=== PATIENT | female | born 1935 | race Caucasian/White ===

== ENCOUNTER → 2020-01-11 08:33 | Outpatient (CLI) | payer OTHER, SELFPAY ==
[2020-01-12 18:30] LABS: COVID19 Sendout Not Detected (Not Detected)
== END ==
PROVIDERS: Visit Provider Physician Assistant
DX: Z11.59 Encounter for screening for other viral diseases (principal)
CPT/HCPCS: 87635

== ENCOUNTER 2023-09-13 13:45 | Observation (INO) | payer OTHER, SELFPAY ==
[2023-09-13] VITALS (25 sets, daily range): BP systolic 129–177; BP diastolic 60–99; PULSE 77–89; RESP 12–20; TEMP 36.1–36.8; O2SAT 84–99; BMI 23.7
--- NOTE | 2023-09-13 | DI.RAD.S_ITS ---
PROCEDURE: XR HIP LT 1V INDICATIONS: HIP DISLOCATION TECHNIQUE: 2 views of the hip were acquired. COMPARISON: [facility], CR, XR HIP W PEL IF DONE LT 2V, 09/13/2023, 14:10. FINDINGS: Bones: Left hip prosthesis with persistent mild positioning of the prosthetic femoral head from the prosthetic acetabulum. It appears to be superiorly and laterally displaced, unchanged Soft tissues: No suspicious soft tissue calcifications or masses. 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 on 09/13/2023 at 17:48 Approved by: Poli Reid M.D. on 09/13/2023 at 17:50
--- NOTE | 2023-09-13 14:00 | DI.RAD.S_ITS ---
PROCEDURE: XR HIP W PEL IF DONE LT 2V INDICATIONS: possible dislocation, history of TECHNIQUE: AP pelvis and lateral view of the hip acquired. COMPARISON: None. FINDINGS: Bones: Patient is status post bilateral hip arthroplasty, with the left femoral component distracted laterally and superiorly from the hip socket. There is elevated acetabular version of the left more than right acetabular component. The visualized bony structures appear intact. Soft tissues: Overlying postoperative changes are noted. No suspicious soft tissue densities. IMPRESSION: Dislocation of left hip prosthesis. Dictated by: Poli Reid M.D. on 09/13/2023 at 13:28 Approved by: Poli Reid M.D. on 09/13/2023 at 13:32
--- NOTE | 2023-09-13 14:55 | ED.LOWEXIN ---
HPI - Extremity Injury (Lower) General Chief Complaint: Extremity Injury, Lower Stated Complaint: L Hip Pain Time Seen by Provider: 09/13/23 14:55 Source: patient and EMS Mode of arrival: EMS Related Data Home Medications Medication Instructions Recorded Confirmed acetaminophen 500 mg tablet 1,000 mg PO BID PRN 09/09/23 09/09/23 (Tylenol Extra Strength) aspirin 81 mg tablet,delayed 81 mg PO DAILY 09/09/23 09/09/23 release (Adult Low Dose Aspirin) latanoprost 0.005 % eye drops 1 drp EYE-BOTH QPM 09/09/23 09/09/23 timolol maleate 0.5 % eye drops 1 drp EYE-BOTH QAM 09/09/23 09/09/23 Previous Rx's Medication Instructions Recorded trospium 20 mg tablet 20 mg PO BID #180 tabs 09/09/23 Allergies Allergy/AdvReac Type Severity Reaction Status Date / Time No Known Drug Allergies Allergy Verified 09/13/23 13:54 Patient History Medical History (Updated 09/09/23 @ 14:03 by Mikhail Jung DO) Gait instability Overactive bladder Social History Smoking Status: Never smoker Smoking Status: Never smoker alcohol intake frequency: holidays/special occasions only Substance Use Type: does not use Exam Initial Vital Signs Initial Vital Signs: Vital Signs Pulse Rate 86 09/13/23 13:54 Respiratory Rate 18 09/13/23 13:54 Blood Pressure 171/85 H 09/13/23 13:54 Pulse Oximetry 96 09/13/23 13:54 Oxygen Delivery Method Room Air 09/13/23 13:54 Course Orders Ordered: ED Orders 09/13/23 14:00 XR hip w pel if done LT 2V Stat Vital Signs Vital signs: Vital Signs - 8 hr 09/13/23 13:54 Pulse Rate 86 Respiratory Rate 18 Blood Pressure 171/85 H Pulse Oximetry 96 Oxygen Delivery Method Room Air Discharge Plan Departure Prescriptions: No Action timolol maleate 0.5 % drops 1 drp EYE-BOTH QAM latanoprost 0.005 % drops 1 drp EYE-BOTH QPM aspirin [Adult Low Dose Aspirin] 81 mg tablet,delayed release (DR/EC) 81 mg PO DAILY acetaminophen [Tylenol Extra Strength] 500 mg tablet 1,000 mg PO BID PRN trospium 20 mg tablet 20 mg PO BID Qty: 180 3RF Rx Instructions: administer on an empty stomach Referrals: Mikhail Jung DO [Primary Care Provider] -
--- NOTE | 2023-09-13 15:20 | ED_ITS ---
HPI - Extremity Injury (Lower) General Chief Complaint: Extremity Injury, Lower Stated Complaint: L Hip Pain Time Seen by Provider: 09/13/23 14:55 Source: patient and EMS Mode of arrival: EMS History of Present Illness HPI Narrative: 8-year-old female with history of prior hip dislocations and bilateral hip replacement. Patient recently moved to the area from [place]. She states she has had prior for prior hip dislocations. Patient states today she was hanging a picture she thinks she may have rotated her leg in wired but states that she had not sat down or bent at the hip or knee significantly when this happened. She states she has had a similar situation she was standing when she dislocated in the past. She states surgeries and prior dislocations were reduced in [place]. Patient states no daily anticoagulants but does have aspirin on her daily med list. She states she has had prior back surgery as well as bilateral hip surgery. She denies any cardiac interventions. No known drug allergies. No tobacco, occasional alcohol, no recreational drugs. Dr. Jung is her primary care physician. Related Data Home Medications Medication Instructions Recorded Confirmed acetaminophen 500 mg tablet 1,000 mg PO BID PRN Pain (Scale 09/09/23 09/13/23 (Tylenol Extra Strength) Score 4-6) aspirin 81 mg tablet,delayed 81 mg PO DAILY 09/09/23 09/13/23 release (Adult Low Dose Aspirin) latanoprost 0.005 % eye drops 1 drp EYE-BOTH QPM 09/09/23 09/13/23 timolol maleate 0.5 % eye drops 1 drp EYE-BOTH QAM 09/09/23 09/13/23 Previous Rx's Medication Instructions Recorded trospium 20 mg tablet 20 mg PO BID #180 tabs 09/09/23 Allergies Allergy/AdvReac Type Severity Reaction Status Date / Time No Known Drug Allergies Allergy Verified 09/13/23 13:54 Review of Systems Review of Systems ROS Unobtainable: All systems reviewed & are unremarkable except as noted in HPI and below Patient History Medical History Gait instability Overactive bladder Social History household members: none Smoking Status: Never smoker alcohol intake: current Smoking Status: Never smoker alcohol intake frequency: holidays/special occasions only Substance Use Type: does not use Exam Narrative Exam Narrative: GENERAL: Alert and oriented x three, elderly female in mild distress. HEENT: Head normocephalic, atraumatic, EOMI, pupils reactive, face symmetric, moist mucous membranes NECK: Supple, full range of motion CARDIOVASCULAR: Regular rate and rhythm without murmurs, rubs or gallops. RESPIRATORY: Breath sounds equal bilaterally, no wheezes rales or rhonchi. ABDOMEN: Soft, nontender. Normoactive bowel sounds all 4 quadrants. No guarding or rebound, rigidity, no mass : No CVA tenderness EXTREMITIES: Normal range of motion infection left lower extremity., no clubbing or edema. Neurovascularly intact. Patient has 2+ dorsalis pedis. She is sensation throughout both legs. Patient does have a small scab on her great toe on the left foot. NEUROLOGICAL: Cranial nerves II through XII grossly intact. Moving all extremities SKIN: Warm, dry, no petechiae, no rashes or lesions otherwise noted. Initial Vital Signs Initial Vital Signs: Vital Signs Pulse Rate 86 09/13/23 13:54 Respiratory Rate 18 09/13/23 13:54 Blood Pressure 171/85 H 09/13/23 13:54 Pulse Oximetry 96 09/13/23 13:54 Oxygen Delivery Method Room Air 09/13/23 13:54 Procedures Orthopedic Joint Reduction Joint #1: Time Out Performed: Yes Side: left Joint Reduction Location: hip Analgesia: procedural sedation Technique used: traction/counter-traction and direct manipulation Post-reduction neuro exam: intact and no change Post-reduction vascular: intact and no change Post Reduction X-Ray Obtained: Yes Post Reduction X-Ray Results: not reduced Procedural Sedation Consent signed: Yes Time out performed: Yes Indication: fracture/dislocation reduction ASA Class: II Mallampati Airway Classification: Class II Time of Last PO Intake: 12:00 Preparation: playground monitor applied, pulse oximeter, supplemental O2 applied, suction/airway equipment at bedside and IV secured IV Propofol dose (mg): 150 (given in 50mg aliquots.) ED Sedation Level: Moderate (Concious) Patient Tolerated Procedure: Well Complications: hypoxia Interventions: Airway repositioned, Assist by BVM and Oxygen applied Course Orders Ordered: Discontinued Medications Acetaminophen (Acetaminophen 325 Mg Tablet) 650 mg PO Q6H PRN PRN Reason: Fever/Mild Pain (1-3) Acetaminophen (Acetaminophen 325 Mg Tablet) 650 mg PO Q6H [facility] Last Admin: 09/15/23 08:11 Dose: 650 mg Documented By: Admin: 09/15/23 02:30 Dose: 650 mg Documented By: Admin: 09/14/23 20:22 Dose: 650 mg Documented By: Admin: 09/14/23 14:36 Dose: 650 mg Documented By: Admin: 09/14/23 09:16 Dose: 650 mg Documented By: Admin: 09/14/23 03:18 Dose: 650 mg Documented By: Admin: 09/13/23 21:03 Dose: 650 mg Documented By: AT Aspirin (Aspirin Ec 81 Mg Tablet) 81 mg PO BID [facility] Last Admin: 09/15/23 08:10 Dose: 81 mg Documented By: Admin: 09/14/23 20:22 Dose: 81 mg Documented By: Admin: 09/14/23 09:17 Dose: 81 mg Documented By: Admin: 09/13/23 21:03 Dose: 81 mg Documented By: AT Bisacodyl (Bisacodyl 10 Mg Supp) 10 mg KS PRN PRN PRN Reason: Constipation Diphenhydramine HCl (Diphenhydramine 25 Mg Tablet) 50 mg PO Q6H PRN PRN Reason: mod to severe erythema, urticaria, or pruritis Diphenhydramine HCl (Diphenhydramine 50 Mg/Ml Vial) 50 mg IV Q6HR PRN PRN Reason: mild to moderate erythema, urticaria, or pruritis Docusate Sodium (Docusate 100 Mg Capsule) 100 mg PO BID [facility] Last Admin: 09/15/23 08:10 Dose: 100 mg Documented By: Admin: 09/14/23 20:22 Dose: 100 mg Documented By: Admin: 09/14/23 09:17 Dose: 100 mg Documented By: Admin: 09/13/23 21:04 Dose: Not Given Documented By: AT Docusate Sodium (Docusate 100 Mg Capsule) 100 mg PO BID DOMONIQUE Lactated Ringer's (Lactated Ringers) 1,000 mls @ 100 mls/hr IV CONT [facility] Last Admin: 09/13/23 21:25 Dose: Not Given Documented By: AT Lactated Ringer's (Lactated Ringers) 1,000 mls @ 100 mls/hr IV CONT DOMONIQUE Last Infusion: 09/15/23 07:43 Dose: Infused Documented By: Admin: 09/13/23 20:59 Dose: 100 mls/hr Documented By: AT Latanoprost (Latanoprost 0.005% Ophth 2.5 Ml) 1 drops EYE-BOTH QPM [facility] Last Admin: 09/14/23 18:04 Dose: Not Given Documented By: MM Naloxone HCl (Naloxone 0.4 Mg/Ml Vial) 0.2 mg IV Q2MIN PRN PRN Reason: Opiate Reversal Naloxone HCl (Naloxone 0.4 Mg/Ml Vial) 0.2 mg IV Q2MIN PRN PRN Reason: Opiate Reversal Naloxone HCl (Naloxone 0.4 Mg/Ml Vial) 0.2 mg IV Q2MIN PRN PRN Reason: Opiate Reversal Ondansetron HCl (Ondansetron 4 Mg Odt) 4 mg PO Q4HR PRN PRN Reason: Nausea And Vomiting Ondansetron HCl (Ondansetron 4 Mg/2 Ml Inj) 4 mg IV Q4HR PRN PRN Reason: Nausea And Vomiting Ondansetron HCl (Ondansetron 4 Mg/2 Ml Inj) 4 mg IV Q4HR PRN PRN Reason: Nausea And Vomiting Ondansetron HCl (Ondansetron 4 Mg Odt) 4 mg PO Q4HR PRN PRN Reason: Nausea Oxybutynin Chloride (Oxybutynin 5 Mg Er Tab) 10 mg PO DAILY [facility] Last Admin: 09/15/23 08:11 Dose: 10 mg Documented By: Admin: 09/14/23 09:17 Dose: 10 mg Documented By: ESEQUIEL Oxycodone HCl (Oxycodone Ir 5 Mg Tablet) 5 mg PO Q3H PRN PRN Reason: Pain, Severe (7-10) Polyethylene Glycol (Polyethylene Glycol 3350 17 Gm Powd.Pack) 17 gm PO DAILY [facility] Last Admin: 09/15/23 08:11 Dose: 17 gm Documented By: Admin: 09/14/23 09:16 Dose: 17 gm Documented By: ESEQUIEL Polyethylene Glycol (Polyethylene Glycol 3350 17 Gm Powd.Pack) 17 gm PO DAILY PRN PRN Reason: Constipation Propofol (Propofol 200 Mg/20 Ml Vial) 70 mg 1 mg/kg (70 mg) IV NOW ONE Stop: 09/13/23 14:57 Last Admin: 09/13/23 16:31 Dose: Not Given Documented By: SPF Propofol (Propofol 200 Mg/20 Ml Vial) 150 mg IV NOW ONE Stop: 09/13/23 16:32 Last Admin: 09/13/23 16:47 Dose: 150 mg Documented By: SPF Sennosides (Sennosides 8.6 Mg Tablet) 17.2 mg PO BEDTIME [facility] Last Admin: 09/14/23 20:22 Dose: 17.2 mg Documented By: Admin: 09/13/23 21:04 Dose: Not Given Documented By: AT Sodium Biphosphate/Sodium Phosphate (Fleets Enema) 1 each KS DAILY PRN PRN Reason: Constipation Timolol Maleate (Timolol 0.5% [facility]) 1 drops EYE-BOTH DAILY [facility] Last Admin: 09/15/23 08:12 Dose: 1 drop Documented By: Admin: 09/14/23 09:44 Dose: 1 drop Documented By: ESEQUIEL Tramadol HCl (Tramadol 50 Mg Tablet) 50 mg PO QID PRN PRN Reason: Pain, Moderate (4-6) Vital Signs Vital signs: Vital Signs - 8 hr 09/13/23 13:54 09/13/23 15:49 09/13/23 15:58 Pulse Rate 86 85 Respiratory Rate 18 Blood Pressure 171/85 H 171/83 H Pulse Oximetry 96 96 Oxygen Delivery Method Room Air Oxygen Flow Rate 09/13/23 15:58 09/13/23 15:59 09/13/23 16:00 Pulse Rate 83 85 Respiratory Rate 14 Blood Pressure 169/84 H Pulse Oximetry 97 97 Oxygen Delivery Method Room Air Oxygen Flow Rate 09/13/23 16:00 09/13/23 16:10 09/13/23 16:10 Pulse Rate 85 86 Respiratory Rate 16 16 Blood Pressure 164/78 H Pulse Oximetry 96 98 Oxygen Delivery Method Nasal Cannula Oxygen Flow Rate 3 09/13/23 16:15 09/13/23 16:15 09/13/23 16:20 Pulse Rate 82 82 Respiratory Rate Blood Pressure 146/99 H Pulse Oximetry 98 91 Oxygen Delivery Method Nasal Cannula Oxygen Flow Rate 6 09/13/23 16:20 09/13/23 16:26 09/13/23 16:26 Pulse Rate 83 Respiratory Rate 17 Blood Pressure 160/94 H 144/67 H Pulse Oximetry 84 L 97 Oxygen Delivery Method Ambu Bag Nasal Cannula Oxygen Flow Rate 15 3 09/13/23 16:30 09/13/23 16:30 09/13/23 16:35 Pulse Rate 83 Respiratory Rate 16 Blood Pressure 141/70 H 152/77 H Pulse Oximetry 95 Oxygen Delivery Method Room Air Oxygen Flow Rate 09/13/23 16:35 09/13/23 16:40 09/13/23 16:40 Pulse Rate 83 82 Respiratory Rate 12 14 Blood Pressure 165/85 H Pulse Oximetry 95 94 Oxygen Delivery Method Room Air Oxygen Flow Rate 09/13/23 16:48 09/13/23 16:48 Pulse Rate 84 Respiratory Rate 20 Blood Pressure 166/82 H Pulse Oximetry 94 Oxygen Delivery Method Room Air Oxygen Flow Rate MDM - Extremity Injury (Lower) Lab Data 09/14/23 04:59 Imaging Data Extremity x-ray #1: Radiologist's Impression: Close Hip X-Ray (Signed) Poli Reid - 09/13/23 Launch?Image [address] [address] XRay Report Signed Patient: Genevieve Gandara MR#: [id number] : 1935 Acct:[id number] Age/Sex: 88 / F Date of Service: 09/13/23 Loc: ED Accession Number: [id number] Procedure: XR hip w pel if done LT 2V Ordering Provider: Tamiko Nash D.O. PROCEDURE: XR HIP W PEL IF DONE LT 2V INDICATIONS: possible dislocation, history of TECHNIQUE: AP pelvis and lateral view of the hip acquired. COMPARISON: None. FINDINGS: Bones: Patient is status post bilateral hip arthroplasty, with the left femoral component distracted laterally and superiorly from the hip socket. There is elevated acetabular version of the left more than right acetabular component. The visualized bony structures appear intact. Soft tissues: Overlying postoperative changes are noted. No suspicious soft tissue densities. IMPRESSION: Dislocation of left hip prosthesis. Dictated by: Poli Reid M.D. on 09/13/2023 at 13:28 Approved by: Poli Reid M.D. on 09/13/2023 at 13:32 pelvis #2: Radiologist's Impression: [address] [address] XRay Report Signed Patient: Genevieve Gandara MR#: [id number] : 1935 Acct:[id number] Age/Sex: 88 / F Date of Service: 09/13/23 Loc: ED Accession Number: [id number] Procedure: XR pelvis 1-2V Ordering Provider: Kate Lang D.O. PROCEDURE: XR PELVIS 1-2V INDICATIONS: left hip dislocation TECHNIQUE: 1 view of the lower pelvis acquired. COMPARISON: None. FINDINGS: Bones: Patient is status post bilateral hip arthroplasty, with hardware the left femoral component lateral and superior to the acetabular component. The contralateral hip joint appears congruent. The visualized bony structures appear intact. Soft tissues: No suspicious soft tissue densities. IMPRESSION: Dislocated left hip prosthesis Dictated by: Poli Reid M.D. on 09/13/2023 at 15:41 Approved by: Poli Reid M.D. on 09/13/2023 at 15:42 MDM Narrative Medical decision making narrative: 88-year-old female with bilateral prosthetic hips with prior hip dislocations on the left. Patient describes having 4 prior episodes. Consent written and verbal was obtained for procedural sedation attempted reduction. This was unsuccessful. Repeat images show no fracture or other change. Patient case was discussed with Dr. Nicolas, orthopedic surgery who will see the patient with plan for OR tonight. Patient to continue to be NPO. Patient tolerating pain well. Continues to be neurovascularly intact. NPO for now. Discharge Plan Departure Clinical Impression: Closed dislocation of left hip, Unsteady gait Admit Date/Time: 09/13/23 17:55 Admit Provider: Johnson Nicolas Diet/Activity/Treatments Diet: Diet as Tolerated Activity: Weight-bearing as tolerated with the knee immobilizer on and locked in extension. Cold/Heat Therapy: Ice to the hip for additional pain control as needed
--- NOTE | 2023-09-13 16:18 | DI.RAD.S_ITS ---
PROCEDURE: XR PELVIS 1-2V INDICATIONS: left hip dislocation TECHNIQUE: 1 view of the lower pelvis acquired. COMPARISON: None. FINDINGS: Bones: Patient is status post bilateral hip arthroplasty, with hardware the left femoral component lateral and superior to the acetabular component. The contralateral hip joint appears congruent. The visualized bony structures appear intact. Soft tissues: No suspicious soft tissue densities. IMPRESSION: Dislocated left hip prosthesis Dictated by: Poli Reid M.D. on 09/13/2023 at 15:41 Approved by: Poli Reid M.D. on 09/13/2023 at 15:42
--- NOTE | 2023-09-13 16:29 | RT ---
Was called down to ER for a procedural sedation for a hip reduction. Pt required some blow by from [facility] for appox 2 min. Pt is on a 3L NC until fully awake.
[2023-09-13] MEDS: propofoL 200 MG/20 ML VIAL 150 MG IV (16:47)
--- NOTE | 2023-09-13 16:51 | PC.NURSE ---
Pt requested to call her daughter in law Rosemary to update her. I called Rosemary and updated her, she states she will come back in to sit with patient.
--- NOTE | 2023-09-13 17:30 | SUR.OPER ---
Supine on padded OR bed, head on pillow, arms secured on padded arm boards at <90 degrees abduction, legs uncrossed, safety belt at thigh, tape over blanket over lower legs.
--- NOTE | 2023-09-13 17:39 | P.CONS_ITS ---
History of Present Illness Consult details Date Patient Seen: 09/13/23 Time Patient Seen: 17:39 Chief complaint: L hip pain Reason for consult: left hip dislocation Requesting provider: Kate Lang Narrative: 88 yo F with history of JULIANNE in 2006 here for acute onset of left hip pain and inability to walk. She had previous dislocation 2 1/2 years ago and took multiple attempts to relocate. She was given an hip abduction brace from before, which she still has at home. She was hanging an object at home and felt a pop along with onset of pain to her left hip. She presented to ER. After workup, 2 attempts of relocations was performed by ER physicians and they were unable to relocate the left hip under sedation. Orthopedic service was consulted. Meds Home Medications and Allergies Home Medications Medication Instructions Recorded Confirmed Type acetaminophen 500 mg tablet 1,000 mg PO BID PRN 09/09/23 09/09/23 History (Tylenol Extra Strength) aspirin 81 mg tablet,delayed 81 mg PO DAILY 09/09/23 09/13/23 History release (Adult Low Dose Aspirin) latanoprost 0.005 % eye drops 1 drp EYE-BOTH QPM 09/09/23 09/09/23 History timolol maleate 0.5 % eye drops 1 drp EYE-BOTH QAM 09/09/23 09/09/23 History trospium 20 mg tablet 20 mg PO BID #180 tabs 09/09/23 09/09/23 Rx Allergies Allergy/AdvReac Type Severity Reaction Status Date / Time No Known Drug Allergies Allergy Verified 09/13/23 13:54 Review of Systems Review of Systems ROS: Yes All systems reviewed with the patient and are negative except as otherwise documented Exam Vital Signs (past 8 hours): - 09/13/23 13:54 09/13/23 15:49 09/13/23 15:58 Pulse Rate 86 85 Respiratory Rate 18 Blood Pressure 171/85 H 171/83 H Pulse Oximetry 96 96 Oxygen Delivery Method Room Air Oxygen Flow Rate 09/13/23 15:58 09/13/23 15:59 09/13/23 16:00 Pulse Rate 83 85 Respiratory Rate 14 Blood Pressure 169/84 H Pulse Oximetry 97 97 Oxygen Delivery Method Room Air Oxygen Flow Rate 09/13/23 16:00 09/13/23 16:10 09/13/23 16:10 Pulse Rate 85 86 Respiratory Rate 16 16 Blood Pressure 164/78 H Pulse Oximetry 96 98 Oxygen Delivery Method Nasal Cannula Oxygen Flow Rate 3 09/13/23 16:15 09/13/23 16:15 09/13/23 16:20 Pulse Rate 82 82 Respiratory Rate Blood Pressure 146/99 H Pulse Oximetry 98 91 Oxygen Delivery Method Nasal Cannula Oxygen Flow Rate 6 09/13/23 16:20 09/13/23 16:26 09/13/23 16:26 Pulse Rate 83 Respiratory Rate 17 Blood Pressure 160/94 H 144/67 H Pulse Oximetry 84 L 97 Oxygen Delivery Method Ambu Bag Nasal Cannula Oxygen Flow Rate 15 3 09/13/23 16:30 09/13/23 16:30 09/13/23 16:35 Pulse Rate 83 Respiratory Rate 16 Blood Pressure 141/70 H 152/77 H Pulse Oximetry 95 Oxygen Delivery Method Room Air Oxygen Flow Rate 09/13/23 16:35 09/13/23 16:40 09/13/23 16:40 Pulse Rate 83 82 Respiratory Rate 12 14 Blood Pressure 165/85 H Pulse Oximetry 95 94 Oxygen Delivery Method Room Air Oxygen Flow Rate 09/13/23 16:48 09/13/23 16:48 09/13/23 17:00 Pulse Rate 84 Respiratory Rate 20 Blood Pressure 166/82 H 158/77 H Pulse Oximetry 94 Oxygen Delivery Method Room Air Oxygen Flow Rate 09/13/23 17:00 Pulse Rate 84 Respiratory Rate 18 Blood Pressure Pulse Oximetry 97 Oxygen Delivery Method Oxygen Flow Rate Oxygen Delivery Method Room Air Oxygen Flow Rate 3 Extrem Other: left leg internally rotated and shortened. left LE neurovascularly intact. Scar from hip replacement well healed. no erythema, no lesions. Objective Imaging x-ray hip: My impression: x-ray of AP pelvis and left hip: history of bilateral JULIANNE, left hip has cerclage wires in place. Left hip has posterior dislocation. no obvious fracture on x-ray. [facility] Medical History Gait instability Overactive bladder Tobacco & Substance Use Smoking Status: Never smoker Assessment & Plan Assessment & Plan narrative: Patient has recurrent left hip dislocation, last time 2 years ago. After discussing with patient risks and benefits of treatment options, informed consent was obtained to perform close reduction of her left hip under anesthesia. Patient was active and highly functional until her injury to cause the dislocation today. Patient reported difficult relocation 2 years ago and ER physicians could not relocate the hip under sedation under multiple attempts. Patient will be taken to the OR emergently for close reduction under anesthesia.
--- NOTE | 2023-09-13 17:49 | PM.OP.1 ---
Operative Date/Time/Diagnoses Date of procedure: 09/13/23 Time of procedure: 18:00 Pre-op diagnosis: 1. Left hip dislocation with history of total hip replacement surgery Post-op diagnosis: same Procedure & Clinicians Procedure: Left hip joint close reduction under anesthesia Same procedure as scheduled: Yes Indications: Ms. Gandara is a 88 yo F with history of JULIANNE to LLE in 2006. She had previous dislocation 2 years ago. Today she re-dislocated while performing chores at home. ER physicians weren't able to reduce her hip after multiple attempts. I am scheduling her for left hip close reduction under general anesthesia emergently. Surgeon: Johnson Nicolas Click Yes if Unassisted: Yes Anesthesia Type: General Operative Notes Estimated Blood Loss (mL): 0 Blood products transfused: none Procedure in detail: Patient was identified in the preoperative area. Informed consent was obtained and placed in the chart. The affected leg was marked. Patient was taken to the operative room. General anesthesia was given to the patient and time-out was performed. Patient's affected hip was flexed slightly and longitudinal traction was pulled along the length of the femur with slight rotation. Assistance was given by nursing staff to apply pressure on the pelvis through the iliac crest to stabilize the pelvis during the reduction attempt. While in traction the hip was rotated slightly and being pulled longitudinally. There was no clucking sensation after multiple attempts. X-ray was taken and left hip dislocation was persisting after multiple attempts and x-rays. At this point I felt there is mechanical resistance to patient's hip being reduced and no additional attempts were made in order to prevent possible traumatic injury to soft tissue and/or bone/implants. Patient was woken up from anesthesia at this time. Patient was then transferred recovery room stable condition. Complications: none Post-operative Condition: stable Disposition: PACU Plan for aftercare: admit to inpatient hospital. After discussing with Dr. Frod, our hip specialist, he will attempt close reduction again possibly with assist of [place] table traction today.
--- NOTE | 2023-09-13 19:44 | PM.HP.1 ---
History of Present Illness History of Present Illness Date Patient Seen: 09/13/23 Time Patient Seen: 19:45 Chief complaint: L hip pain Narrative: 88-year-old female seen in the preoperative holding area today. 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 This hip was placed in 2006 [address] [place] [address] a [address] Glaser through a posterior approach. She has had 5 prior dislocations. She reports that her past medical history is significant only for bladder issues. She complains of pain in the left hip. It does not radiate. It is worsened by movement. [facility] Medical History Gait instability Overactive bladder Social History household members: family Smoking Status: Never smoker alcohol intake: current Meds Home Medications and Allergies Home Medications Medication Instructions Recorded Confirmed Type acetaminophen 500 mg tablet 1,000 mg PO BID PRN Pain (Scale 09/09/23 09/13/23 History (Tylenol Extra Strength) Score 4-6) aspirin 81 mg tablet,delayed 81 mg PO DAILY 09/09/23 09/13/23 History release (Adult Low Dose Aspirin) latanoprost 0.005 % eye drops 1 drp EYE-BOTH QPM 09/09/23 09/13/23 History timolol maleate 0.5 % eye drops 1 drp EYE-BOTH QAM 09/09/23 09/13/23 History trospium 20 mg tablet 20 mg PO BID #180 tabs 09/09/23 09/13/23 Rx Allergies Allergy/AdvReac Type Severity Reaction Status Date / Time No Known Drug Allergies Allergy Verified 09/13/23 13:54 Review of Systems Review of Systems ROS: Yes All systems reviewed with the patient and are negative except as otherwise documented Exam Vital Signs (past 8 hours): - 09/13/23 13:54 09/13/23 15:49 09/13/23 15:58 Temperature Pulse Rate 86 85 Respiratory Rate 18 Blood Pressure 171/85 H 171/83 H Pulse Oximetry 96 96 Oxygen Delivery Method Room Air Oxygen Flow Rate 09/13/23 15:58 09/13/23 15:59 09/13/23 16:00 Temperature Pulse Rate 83 85 Respiratory Rate 14 Blood Pressure 169/84 H Pulse Oximetry 97 97 Oxygen Delivery Method Room Air Oxygen Flow Rate 09/13/23 16:00 09/13/23 16:10 09/13/23 16:10 Temperature Pulse Rate 85 86 Respiratory Rate 16 16 Blood Pressure 164/78 H Pulse Oximetry 96 98 Oxygen Delivery Method Nasal Cannula Oxygen Flow Rate 3 09/13/23 16:15 09/13/23 16:15 09/13/23 16:20 Temperature Pulse Rate 82 82 Respiratory Rate Blood Pressure 146/99 H Pulse Oximetry 98 91 Oxygen Delivery Method Nasal Cannula Oxygen Flow Rate 6 09/13/23 16:20 09/13/23 16:26 09/13/23 16:26 Temperature Pulse Rate 83 Respiratory Rate 17 Blood Pressure 160/94 H 144/67 H Pulse Oximetry 84 L 97 Oxygen Delivery Method Ambu Bag Nasal Cannula Oxygen Flow Rate 15 3 09/13/23 16:30 09/13/23 16:30 09/13/23 16:35 Temperature Pulse Rate 83 Respiratory Rate 16 Blood Pressure 141/70 H 152/77 H Pulse Oximetry 95 Oxygen Delivery Method Room Air Oxygen Flow Rate 09/13/23 16:35 09/13/23 16:40 09/13/23 16:40 Temperature Pulse Rate 83 82 Respiratory Rate 12 14 Blood Pressure 165/85 H Pulse Oximetry 95 94 Oxygen Delivery Method Room Air Oxygen Flow Rate 09/13/23 16:48 09/13/23 16:48 09/13/23 17:00 Temperature Pulse Rate 84 Respiratory Rate 20 Blood Pressure 166/82 H 158/77 H Pulse Oximetry 94 Oxygen Delivery Method Room Air Oxygen Flow Rate 09/13/23 17:00 09/13/23 17:30 09/13/23 18:25 Temperature 98.2 F 97.2 F L Pulse Rate 84 88 77 Respiratory Rate 18 16 16 Blood Pressure 162/90 H 145/86 H Pulse Oximetry 97 99 98 Oxygen Delivery Method Room Air Room Air Oxygen Flow Rate 09/13/23 18:30 09/13/23 18:35 09/13/23 18:45 Temperature 97.2 F L 97.2 F L Pulse Rate 83 83 82 Respiratory Rate 16 16 16 Blood Pressure 159/79 H 148/69 H 145/69 H Pulse Oximetry 98 98 98 Oxygen Delivery Method Room Air Room Air Room Air Oxygen Flow Rate Oxygen Delivery Method Room Air Oxygen Flow Rate 3 Narrative Exam Narrative: Sensation intact to light touch in entire foot. Flexes and extends hallux and ankle. Well-healed posterior incision. No severe abrasions on the hip at the site of prior reduction attempts Const General: cooperative Orientation: alert and awake [facility] Head: normal to inspection Ears: hearing grossly normal bilaterally Eyes General: appearance normal, both eyes and all related structures Neck Neck: normal visual inspection Resp Effort & Inspection: normal respiratory effort and able to speak in complete sentences Cardio Pulses: other (peripheral pulses present) Skin Lesions: no lesions Rashes: no rashes Neuro General: patient alert, patient awake and moves all extremities Psych Appearance: grossly normal Assessment & Plan Assessment and plan (1) Closed dislocation of left hip: Status: Acute Plan I plan to proceed with the traction table aided closed reduction of the left hip this evening. Prior attempts have been made earlier this evening and I am hopeful that with the aid of the fracture table we will be able to get the hip reduced. As she has had 5 dislocations she is going to be appropriate for revision of her liner likely to a constrained component however it would be ideal from a preoperative planning perspective to this as a outpatient procedure if we are able to get the hip back in the evening. I have no plans to open the hip this evening if I am unsuccessful in my attempts to achieve a closed reduction. I would have her utilize a an abduction pillow following reduction. Quality VTE Deep Vein Thrombosis/Pulmonary Embolism Present on Admission: No
--- NOTE | 2023-09-13 20:14 | SUR.OPER ---
Supine on padded [place] table with bilateral legs secured in padded positioning boots and suspended in positioning spars, operative leg in traction per surgeon. Head on one pillow. Arm on non-operative side secured on padded armboard <90 degrees abduction. Arm on operative side padded and resting across chest then secured with tape over sheet. Padded perineal post in place per surgeon.
--- NOTE | 2023-09-13 20:22 | DI.RAD.S_ITS ---
PROCEDURE: XR HIP W PEL IF DONE LT 2V INDICATIONS: DISLOCATED HIP TECHNIQUE: A total of 2 views of the hip were acquired. COMPARISON: [facility], [place], XR HIP W PEL IF DONE LT 2V, 09/13/2023, 14:10. FINDINGS: Bones: No fractures or dislocations. No suspicious bony lesions. The visualized pelvic ring appears intact. Longstanding left total hip arthroplasty. Soft tissues: No suspicious soft tissue calcifications or masses. IMPRESSION: Successful reduction of left hip arthroplasty dislocation identified by plain film imaging earlier same day. No secondary fracture is found. Dictated by: Toni Coyne M.D. on 09/13/2023 at 20:46 Approved by: Toni Coyne M.D. on 09/13/2023 at 20:47
--- NOTE | 2023-09-13 20:24 | PM.OP.1 ---
Operative Date/Time/Diagnoses Date of procedure: 09/13/23 Time of procedure: 20:24 Pre-op diagnosis: Prosthetic left hip dislocation Post-op diagnosis: same Procedure & Clinicians Procedure: Closed reduction under anesthesia of left hip Same procedure as scheduled: Yes Surgeon: William Ford Click Yes if Unassisted: Yes Operative Notes Procedure in detail: The patient was seen in the preoperative holding area and counseled regarding her situation. I have recommended revision surgery for her recurrent hip dislocations. In order to allow this to be planned appropriately before hand, my preference would be to manage it in the outpatient setting. I discussed with her that I would attempt reduction tonight and if unsuccessful would admit her for revision later this week. A time-out procedure was performed prior to the reduction attempt. The patient was anesthetized and transferred to the [place] table. Fluoroscopy was used to demonstrate a dislocation of the left hip. It was localized with a radiolucent instrument on a lateral radiograph which demonstrated that the hip was sitting anterior to the acetabulum. The hip was externally rotated to 90? and traction was applied to the foot. On an AP fluoroscopic image I verified that the acetabular head had cleared the acetabular rim. Then internally rotated the hip to neutral and slowly released traction. I verified fluoroscopically a concentric reduction. I gently internally and externally rotated the hip to verify that it would remain reduced with gentle range of motion. I obtained a lateral image as well again demonstrating successful reduction. I aided in transferring the patient off of the operating table back to a stretcher and placed her in an abduction pillow. Post-operative Plan for aftercare: 1. Admit to myself overnight 2. Per Dr. Nicolas's note, patient previously had an abduction brace. Ideally this would be brought to the hospital so she can transition from abduction pillow to abduction brace tomorrow. If she does not in fact have an abduction brace then she should be placed in the knee immobilizer. WBAT with a walker once immobilized, either in the form of the abduction brace or the knee immobilizer 3. CT scan of the left hip to be obtained tomorrow for preoperative planning purposes 4. We will begin planning for a left hip revision as a planned procedure. This will likely involve either conversion to a constrained liner or cup sided revision with placement of a dual mobility articulation through an anterior approach. I anticipate stem retention. I will attempt to get this done in an expedient fashion 5. Follow up with me on in [place] at my clinic
--- NOTE | 2023-09-13 20:47 | DI.CT.S_ITS ---
PROCEDURE: CT PEL WO CON INDICATIONS: Surgical planning for revision left total hip TECHNIQUE: Noncontrast 3 mm axial sections acquired through the bony pelvis, with coronal and sagittal reformatting. COMPARISON: [facility], CR, XR HIP W PEL IF DONE LT 2V, 09/13/2023, 20:16. FINDINGS: Image quality: Excellent. Bones: No acute fracture. Bilateral total hip arthroplasty hardware is intact with no perihardware lucency to suggest hardware loosening. Left proximal femoral diaphyseal cerclage wire is intact. Alignment is anatomic. Partially visualized posterior fusion hardware at L4 and L5 with bilateral transpedicular screws. Soft tissues: Moderate left and small right fat containing inguinal hernias.. Mild atherosclerotic calcification of the distal abdominal aorta and bilateral iliac and femoral vasculature. Colonic diverticulosis, without diverticulitis. Moderate amount of air within the bladder with air in the bladder wall (7/52). IMPRESSION: 1. Bilateral total hip arthroplasty hardware is intact with no perihardware lucency to suggest hardware loosening. Alignment is anatomic. No acute fracture. 2. Air within the bladder which may be secondary to recent instrumentation. Additionally, there is air in the bladder wall which may be secondary to emphysematous cystitis. Recommend correlation with urine analysis and culture. 3. Colonic diverticulosis, without diverticulitis. Findings regarding emphysematous cystitis will be communicated to the ordering provider. Dictated by: Claude Felipe M.D. on 09/14/2023 at 8:56 Approved by: Claude Felipe M.D. on 09/14/2023 at 9:14
[2023-09-13] MEDS: LACTATED RINGERS 1,000 ML 100 ML IV (20:59)
[2023-09-13] MEDS: ASPIRIN EC 81 MG TABLET PO (21:03)
[2023-09-13] MEDS: ACETAMINOPHEN 325 MG TABLET 650 MG PO (21:03)
--- NOTE | 2023-09-13 21:13 | PC.NURSE ---
Pt back in room from OR with closed reduction to L hip. AOx4, room air. VS stable. LR @ 100 infusing to L AC PIV. 06/06 pain reported to L hip, tylenol given as ordered. Will monitor, call light in reach.
[2023-09-14 00:15] VITALS: BP 129/57; PULSE 88; RESP 17; TEMP 36.4; O2SAT 99
[2023-09-14] MEDS: ACETAMINOPHEN 325 MG TABLET 650 MG PO ×4 (03:18→20:22)
[2023-09-14 05:08] VITALS: BP 116/70; PULSE 96; RESP 18; TEMP 36.5; O2SAT 98
[2023-09-14 05:33] LABS: Hematocrit 34.3 % (36-46); Hemoglobin 11.6 g/dL (12.0-16.0)
--- NOTE | 2023-09-14 07:32 | PM.PNPO.1 ---
Subjective Subjective Interval history: Genevieve is a pleasant 88 year old female who suffered from prostatic left hip dislocation on 09/12 while hanging an object up at home. She felt a pop at the time of injury and had sudden left hip pain and inability to walk. History of JULIANNE in 2006 with previous dislocations although last dislocation was 2.5 years ago. She was seen at ED on 09/12 where 2 unsuccessful closed reduction attempts were made by the ER physicians under sedation. Orthopedics was then consulted, closed reduction of the left prosthetic hip was eventually successful after several attempts. She denies any significant pain. Denies any numbness or tingling in the left lower extremity. No concerns or complaints for me this morning. Patient has not mobilized with PT as she still needs to be fitted for the knee immobilizer brace, will plan to work with PT later today. She does live alone but has a sister in law who lives near by and can provide some additional assistance as needed. Denies fever, chills, chest pain, SOB, nausea, vomiting. Exam Vital Signs (past 8 hours): - 09/14/23 00:15 09/14/23 05:08 Temperature 97.6 F 97.7 F Pulse Rate 88 96 H Respiratory Rate 17 18 Blood Pressure 129/57 L 116/70 Pulse Oximetry 99 98 Oxygen Flow Rate 1 Oxygen Delivery Method Room Air Oxygen Flow Rate 1 Narrative Exam Narrative: Lying in bed comfortably during interview today. No acute distress. SCDs on and functioning. Resp Effort & Inspection: normal respiratory effort and able to speak in complete sentences Cardio Rate: regular rate Other: Brisk capillary refill. Pulses intact. Skin Rashes: no rashes Other: Well-healed scar from prior posterior left JULIANNE surgical incision. Extrem Other: Gross sesnsation intact throughout bilateral lower extremities. 5/5 strength with DF, PF, EHL bilaterally. Calf soft and nontender bilaterally Objective Labs 09/14/23 04:59 Labs: Laboratory Results - last 24 hr 09/14/23 04:59 Hgb 11.6 L Hct 34.3 L PFSH Medical History Gait instability Overactive bladder Social History household members: none Smoking Status: Never smoker alcohol intake: current Assessment & Plan Post-op Postoperative Procedures: Procedures Operation Date: 09/13/23 18:00 Actual Procedure Side Surgeon p Closed Reduction Dislocated Hip Left Johnson Nicolas MD Operation Date: 09/13/23 20:00 Actual Procedure Side Surgeon p Closed Reduction Dislocated Hip William Ford MD Postoperative plan narrative: 1) Plan to discharge to home either today or tomorrow pending PT evaluation. 2) Continue multimodal pain management with ice to the hip for additional pain control. 3) Weight bearing as tolerated with a walker and only while wearing the knee immobilizer. 4) Follow up with Dr. Ford on at our office ([facility]). This appointment still needs to be scheduled. All patient's questions were answered, she demonstrates understanding and is in agreement with the plan. Call our office if any questions or concerns arise. Quality VTE Deep Vein Thrombosis/Pulmonary Embolism Present on Admission: No
[2023-09-14 08:05] VITALS: BP 117/63; PULSE 90; RESP 18; TEMP 37.1; O2SAT 98
[2023-09-14] MEDS: polyethylene glycoL 3350 17 GM POWD.PACK PO (09:16)
[2023-09-14] MEDS: OXYBUTYNIN 5 MG ER TAB 10 MG PO (09:17)
[2023-09-14] MEDS: DOCUSATE 100 MG CAPSULE PO ×2 (09:17→20:22)
[2023-09-14] MEDS: ASPIRIN EC 81 MG TABLET PO ×2 (09:17→20:22)
[2023-09-14] MEDS: TIMOLOL 0.5% OPHTH 1 DROPS EYE-BOTH (09:44)
--- NOTE | 2023-09-14 11:34 | PT.IIE ---
Current Diagnoses Unspecified dislocation of left hip, initial encounter (09/13/23) Surgery Performed Operation Date: 09/13/23 18:00 Actual Procedures p Attempted Closed Reduction of Dislocated Hip(Left) - Johnson Nicolas MD Operation Date: 09/13/23 20:00 Actual Procedures p Closed Reduction Dislocated Hip(Left) - William Ford MD Medical History (Last Reviewed 09/13/23 @ 17:43 by Johnson Nicolas MD) Gait instability Overactive bladder Physical Therapy Inpatient Evaluation/Re-Eval M1 PT/OT-IP Prior Functional Status Start: 09/14/23 09:00 Freq: NEEDED Status: Active Protocol: Document 09/14/23 11:34 AW (Rec: 09/14/23 13:11 AW [id number]) Medical Review Prior Functional Status Medical History Reviewed Yes Communication Pt is an effective verbal communicator. Mobility and Gait Pt mobilizes with 4WW vs cane. Activities of Daily Living and IADL's Independent Social History Household Members none Living Arrangements House Number of Floors (Floors) One Floor Number of Stairs To Enter/Railing? Pt goes down a ramp to enter her ground floor living quarters. There are no stairs. Home Environment High Toilet,Walk in Shower Home Equipment Front Wheel Walker,Four Wheel Walker,Straight Cane,Shower Seat with Backrest,Balance Wheel Screw Hole Tapper, Grab Bars In Shower Employment Status Retired Additional Social History Comment Pt lives on the ground level of a two story home. She just moved there two months ago. Her sister in law lives upstairs, but only inspector watch parts ( splits her time between [place] and [place]). M2 PT-IP Current Condition Start: 09/14/23 09:00 Freq: NEEDED Status: Active Protocol: Document 09/14/23 11:34 AW (Rec: 09/14/23 13:11 AW [id number]) Physical Therapy Current Condition Current Condition Evaluation Date 09/14/23 Treatment Diagnosis left prosthetic hip dislocation s/o closed reduction; impaired mobility Onset Date 09/12/23 M3 PT-IP Subjective Start: 09/14/23 09:00 Freq: NEEDED Status: Active Protocol: Document 09/14/23 11:34 AW (Rec: 09/14/23 13:11 AW [id number]) Subjective Physical Therapy Visit Type Type Initial Evaluation Visit Start Time 10:59 Visit Stop Time 11:34 Notes Pt's sister in law is present during evaluation. Number of [employer] Visits 0 Physical Therapy Visit Comments Patient Comments Pt is willing to participate with PT assessment Patient Goals Pt hopes to have hip revision surgery sooner rather than later. Therapy Pain Assessment Pain When Pain Assessed During Mobility Pain Present Pain Present Pain Reported Location Left Hip Intensity 3 Scale Used Numeric (0 - 10) Pain Management Techniques Timing of Activity with Medications M4 PT-IP Mobility and Gait Start: 09/14/23 09:00 Freq: NEEDED Status: Active Protocol: Document 09/14/23 11:34 AW (Rec: 09/14/23 13:11 AW [id number]) PT-Bed Mobility Assessment Supine to Sit Supine to Sit Standby Assistance,Head of Bed Elevated,Bedrails Scooting Scooting to Edge of Bed Standby Assistance PT-Transfer Assessment Sit to and From Stand Sit to and from Stand Contact Guard Assistance,1 Person Assistance,Use of Upper Extremities Equipment Transfer Assistive Device Gait Belt,Front Wheeled Walker Orthotic/Prosthetic Devices or Brace: Yes Transfers Transfer Destination Chair,Toilet Transfer Technique Stand Step Pivot Transfer Ability Level of Assist Contact Guard Assistance Comments Mobility Comments Pt is found resting in bed. PT applies knee immobilizer brace and educates pt on doffing and donning. Pt understands she should remain in the brace. Further education provided on anterior and posterior hip precautions . Pt completes supine to sit transfer with HOB elevated and using bed rails. BP 107/54 HR 74 SpO2 95% RA. Pt is able to stand to FWW with SBA. She uses the FWW to ambulate to the bathroom. Toilet transfers require CGA and use of grab bar. Pt has no grab bar at home. Due to hip precautions, pt needs assist to don fresh briefs but is able to stand and pull them up with no more than SBA. She proceeds to ambulate into the hallway with FWW, walking a total of 50 feet with fair weightbearing LLE. She returns to the room and transfers to recliner chair. She is able to stand once more with CGA and cues for hip precautions. She then settles back into the chair where she is left with call light handy. Gait Assessment Gait Gait Assistance Required: Standby Assistance Distance (Feet) 50 Able to Maintain Weight Bearing Status Yes During Gait Assistive Devices Assistive Device Gait Belt,Front Wheeled Walker Orthotic/Prosthetic Devices or Brace: Yes Gait Deviations General Gait Pattern Antalgic,Decreased Stride Length,Decreased Feet Clearance,Flexed Trunk Factors Limiting Gait Function Factors Limiting Gait Function Decreased Strength,Limited Range of Motion,Pain Comments Gait Comments See mobility comments. All mobility performed with knee immobilizer on. Stair Climbing Assessment Comments Stair Climbing Comments No stairs at home. PT-Balance Assessment Sitting Balance and Reactions Static Sitting Balance Ability Normal Dynamic Sitting Balance Ability Normal Standing Balance and Reactions Static Standing Balance Ability Good Dynamic Standing Balance Ability Good Device Used FWW M5 PT-IP Objective Assessments Start: 09/14/23 09:00 Freq: NEEDED Status: Active Protocol: Document 09/14/23 11:34 AW (Rec: 09/14/23 13:11 AW [id number]) Orientation Orientation/Cognition Level of Alertness Alert Orientation Name,Day of Week,Place, Situation Language Function Ability No Deficits Noted Safety Awareness Understands Safety Issues Comments Benefits from cues for hip precautions. Gross Range of Motion Upper Extremity ROM Assessment Within Functional Limits Lower Extremity ROM Assessment Left Impaired Impairments secondary to knee immobilizer and hip pain Strength Upper Extremity Strength Assessment Within Functional Limits Lower Extremity Strength Assessment Left Impaired Hip 3/5 Comments Strength Comments R hip 4/5; R knee ext 4+/5; R ankle DF 4+/5 Sensation Assessment Sensation Gross Sensation WNL M6 PT-IP Treatment Start: 09/14/23 09:00 Freq: NEEDED Status: Active Protocol: Document 09/14/23 11:34 AW (Rec: 09/14/23 13:11 AW [id number]) Physical Therapy Treatment Education Education Provided Precautions,Weight Bearing Status,Safety Brace Education Donning,[employer],Patient Equipment Issued Equipment Type and Company Dispensed knee immobilizer from [employer], per ortho orders. M7 PT-IP Assessment and Plan Start: 09/14/23 09:00 Freq: NEEDED Status: Active Protocol: Document 09/14/23 11:34 AW (Rec: 09/14/23 13:11 AW [id number]) PT Summary Assessment and Plan Potential Rehabilitation Potential Good Status of Condition at Evaluation Evolving Summary Impairments Pain,ROM,Strength,Balance,Bed Mobility,Transfers,Gait Assessment Summary Genevieve Lopez is an 88 yo woman admitted following closed reduction of dislocated left prosthetic hip. She is to maintain posterior AND anterior hip precautions, wear a knee immobilizer, and WBAT with a walker. Ortho notes seem to suggest pt is to follow up as an outpatient for hip revision surgery. PLOF: She typically mobilizes with a 4WW vs SPC. She lives in a ground floor apartment with ramped entry and is independent in all regards. Her sister in law lives in a separate unit upstaits but splits her time between [place] and [place]. Pt has no other family members or social support in the area. CLOF: Pt is mobilizing safely but requiring CGA and hip precaution cues for some transfers. PT strongly recommends OT assessment prior to patient's discharge as ADL management will likely be her biggest barrier to safe home discharge at this time. If pt is able to secure assist from family or private caregiver for ADL management, PT feels she could safely discharge home with home health services while awaiting hip revision. If she is unable to find caregiver assist, PT would recommend SNF for ongoing rehab services in a setting that can support her care needs. Goals Bed Mobility Goal Standby Assistance Transfer Goal Standby Assistance,Front Wheeled Walker Gait Goal Standby Assistance,Front Wheel Walker Gait Distance 75 Other Goals - Pt maintains anterior and posterior hip precautions at all times. - Pt independently dons and doffs knee immobilizer. Days to Meet Goals 3 Frequency of Treatment Frequency Of Treatment Twice a Day Treatment Plan Physical Therapy Treatment Plan Bed Mobility Training,Transfer Training,Gait Training, Therapeutic Exercise,Balance Retraining,Discharge Planning, Hot or Cold Pack,Neuromuscular Re-ed Other Recommendations and Next Treatment Reinforce hip precautions. Focus Assess level of assist with knee immobilizer. Transfers. Ambulate as tolerated. Precautions Posterior Hip Precautions No Hip Flexion > 90 degrees,No Hip Internal Rotation,No Hip Adduction Anterior Hip Precautions No Hip Extension,No Hip External Rotation Brace Knee immobilizer at all times. Weight Bearing Status Weight Bearing Status Weight Bear as Tolerated Allowed Weight Bearing Amount (enter % WBAT LLE or #) (%) Recommendations To Nursing Amount of Assist Needed 1 Person Assist Discharge Recommendations PT Discharge Recommendations Home with Assistance,Home Health,Home vs SNF Other Discharge Recommendations SNF only if unable to secure caregiver assist for home. Does not require 24/7. Transportation Needs at Discharge Private Vehicle
--- NOTE | 2023-09-14 13:25 | PT-IP ANOTE ---
Pt declines PT in PM, stating that she just needs to sleep.
--- NOTE | 2023-09-14 14:42 | CM.DANOTE ---
DCP Assessment Note Pt is an 88yo F here following left hip dislocation. PMH of 5 dislocations and various hip surgeries. PCP Dr. Erich Power [facility] and self pay [employer] reviewed EMR. Per surgeon note, hip dislocation fixed without surgical intervention, wants to follow up with pt in the OP setting for further management of hip. Per Ortho PA, could be stable for dc today but willing to dc pt tomorrow. Per ortho PA, arranging for OP f/u with Dr. Smith on , time pending. Per PT, could be safe at home with assistance and HH. Able to transfer/ambulate in room. OT eval pending. [employer] met with pt and sister in law Rosemary ([phone]) in room. Pt lives alone in [facility] at baseline. Recently moved here from [place] after her . Pt has a walker/wheelchair/shower chair at home. Drives. AVNI lives in same building but is not around consistently due to her (pt's brother) recently having kidney surgery in [place] and having to stay there to be close to his doctor. Pt reports feeling comfortable discharging home as she has had many hip dislocations before and knows what to expect. [employer] reviewed SNF/HH/PP CG options with pt and AVNI. No hx of SNF/HH. Open to HH, preference is agency that could start the soonest. AVNI working on hiring her in home CG for pt in the short term while she calls/gets set up with different PP CG agencies. [employer] reviewed different PP CG agencies with pt/AVNI. AVNI will make some calls this afternoon. In agreement with home with AVNI/HH/CG support. AVNI will p/u any additional equip tomorrow at [facility] if needed. [employer] spoke with Jeanne from [facility]- able to start Thu/ of this week. DONI Sosa kindly agreed to email referral for review. [employer] completed f2f. Order needed. Plan: anticipate dc home tomorrow following OT eval with sister in law, [facility] (pending acceptance), and PP CG. f/u with ortho office on . CM team will continue to follow closely ALVA Granados Discharge Planning/Care Management CM Discharge Assessment Start: 09/14/23 14:35 Freq: Status: Active Protocol: Document 09/14/23 14:35 SL (Rec: 09/14/23 14:39 SL [id number]) Discharge Planning Assessment Assigned Inspector Dials ALVA Solis/Assigned Designee Name AVNI Riley Contact Information [phone] Advance Directives? No History Provided By Patient Prior Living Arrangements House Household Members none Type of transporation used prior to Drives own vehicle admit Independent with ADL's Yes Is patient alert and oriented? Yes DME Already Rented / Owned Wheelchair,Elevated Toilet Seat,FWW / Walker Comment looking to get grabbers for socks Patient/Family Preference Home with Home Health Discharge Plan Home with Home Health Transportation Arrangement sister in law in [place] Referrals Initiated Home Health If patient plan is home with home health Yes : Has signed face to face form been completed? SNF/HH Preference [facility] Whiteboard Updated in Patient Room with Yes name and ext. # of Inspector Dials Review Status In Process Please Provide Date Initial DC 09/14/23 Assessment Was Performed Next Review Type Continued Stay Review
[2023-09-14 16:11] VITALS: O2SAT 98
[2023-09-14 20:06] VITALS: BP 119/49; PULSE 92; RESP 18; TEMP 36.2; O2SAT 98
[2023-09-14] MEDS: SENNOSIDES 8.6 MG TABLET 17.2 MG PO (20:22)
[2023-09-15] MEDS: ACETAMINOPHEN 325 MG TABLET 650 MG PO ×2 (02:30→08:11)
[2023-09-15] MEDS: ASPIRIN EC 81 MG TABLET PO (08:10)
[2023-09-15] MEDS: DOCUSATE 100 MG CAPSULE PO (08:10)
--- NOTE | 2023-09-15 08:10 | P.DS_ITS ---
History of Present Illness History of Present Illness Date Patient Seen: 09/15/23 Time Patient Seen: 08:10 Chief complaint: L hip pain Narrative: Operative Date/Time/Diagnoses Date of procedure: 09/13/23 Time of procedure: 20:24 Pre-op diagnosis: Prosthetic left hip dislocation Post-op diagnosis: same Procedure & Clinicians Procedure: Closed reduction under anesthesia of left hip Same procedure as scheduled: Yes Surgeon: William Ford Click Yes if Unassisted: Yes Operative Notes Procedure in detail: The patient was seen in the preoperative holding area and counseled regarding her situation. I have recommended revision surgery for her recurrent hip dislocations. In order to allow this to be planned appropriately before hand, my preference would be to manage it in the outpatient setting. I discussed with her that I would attempt reduction tonight and if unsuccessful would admit her for revision later this week. A time-out procedure was performed prior to the reduction attempt. The patient was anesthetized and transferred to the [place] table. Fluoroscopy was used to demonstrate a dislocation of the left hip. It was localized with a radiolucent instrument on a lateral radiograph which demonstrated that the hip was sitting anterior to the acetabulum. The hip was externally rotated to 90? and traction was applied to the foot. On an AP fluoroscopic image I verified that the acetabular head had cleared the acetabular rim. Then internally rotated the hip to neutral and slowly released traction. I verified fluoroscopically a concentric reduction. I gently internally and externally rotated the hip to verify that it would remain reduced with gentle range of motion. I obtained a lateral image as well again demonstrating successful reduction. I aided in transferring the patient off of the operating table back to a stretcher and placed her in an abduction pillow. Electronically signed by William Ford MD Discharge Providers Provider Date of admission: 09/13/23 17:55 Discharge Date: 09/15/23 Primary care physician: Mikhail Jung DO Consults: 09/13/23 20:47 Consult to Discharge Planning Routine Comment: Consult to Discharge Planning Routine Comment: Consult to Physical Therapy Evaluate & Treat Comment: Physician Instructions: Both Anterior and posterior hip precautions Consult to Physical Therapy Evaluate & Treat Comment: Physician Instructions: Evaluate and Treat 09/14/23 13:09 Consult to Occupational Therapy Evaluate & Treat Comment: Physician Instructions: Evaluate and treat Discharge provider: Omari Campbell PA-C Summary Hospital Course Discharge Diagnosis: Status post closed left hip reduction Hospital Course: Multimodal pain control. Physical therapy. Status at Discharge Cognitive/behavioral status at discharge: oriented Functional status at discharge: uses cane/walker Time Spent with Patient Time spent: Less than 30 minutes Exam Vital Signs (past 8 hours): - 09/15/23 02:22 Oxygen Delivery Method Nasal Cannula Oxygen Flow Rate 1 Fraction of Inspired Oxygen 28 SaO2/FiO2 Ratio 350 Oxygen Delivery Method Nasal Cannula Oxygen Flow Rate 1 Narrative Exam Narrative: Patient is found sitting comfortably in a chair. Left knee immobilizer is on. No tenderness palpation over the left hip. Patient is able to dorsiflex and plantarflex against resistance at the ankle. Pedal pulses intact. Resp Effort & Inspection: normal respiratory effort and able to speak in complete sentences Objective Labs 09/14/23 04:59 [facility] Medical History Gait instability Overactive bladder Social History household members: none Smoking Status: Never smoker alcohol intake: current Discharge Assessment & Plan Assessment and Plan Assessment: Status post closed left hip reduction Plan of Treatment: 1) Plan to discharge to home today. 2) Continue multimodal pain management with ice to the hip for additional pain control. 3) Weight bearing as tolerated with a walker and only while wearing the knee immobilizer. 4) Follow up with Dr. Ford on at our office ([facility]). Discussed with case management to assist in settting up the appointment. Discharge Plan Discharge Plan Patient Disposition: Home Discharge orders & Medications Prescriptions: Continued timolol maleate 0.5 % drops 1 drp EYE-BOTH QAM latanoprost 0.005 % drops 1 drp EYE-BOTH QPM aspirin [Adult Low Dose Aspirin] 81 mg tablet,delayed release (DR/EC) 81 mg PO DAILY acetaminophen [Tylenol Extra Strength] 500 mg tablet 1,000 mg PO BID PRN (Reason: Pain (Scale Score 4-6)) trospium 20 mg tablet 20 mg PO BID Qty: 180 3RF Rx Instructions: administer on an empty stomach Follow up/Referrals: Mikhail Jung DO [Primary Care Provider] - William Ford MD [Physician] - 09/17/23 11:00 am (Appt:09/16 @ 10:30 for check in for a 11:[address] Ford @ [facility] ) Diet/Activity/Treatments Diet: Diet as Tolerated Activity: Weight-bearing as tolerated with the knee immobilizer on and locked in extension. Cold/Heat Therapy: Ice to the hip for additional pain control as needed Visit Report/Discharge Packet Instructions: DI for Hip Dislocation -- Adult Stand Alone Forms: Patient Portal/API, Stroke Signs & Symptoms Discharge Data Primary Care Provider: Mikhail Jung Attending Provider: Johnson Nicolas Admit Date/Time: 09/13/23 17:55 Quality VTE Deep Vein Thrombosis/Pulmonary Embolism Present on Admission: No
[2023-09-15] MEDS: OXYBUTYNIN 5 MG ER TAB 10 MG PO (08:11)
[2023-09-15] MEDS: polyethylene glycoL 3350 17 GM POWD.PACK PO (08:11)
[2023-09-15] MEDS: TIMOLOL 0.5% OPHTH 1 DROPS EYE-BOTH (08:12)
[2023-09-15 08:42] VITALS: BP 107/60; PULSE 93; RESP 16; TEMP 36; O2SAT 96
--- NOTE | 2023-09-15 09:08 | PT.IPTN ---
Current Diagnoses Unspecified dislocation of left hip, initial encounter (09/13/23) Surgery Performed Operation Date: 09/13/23 18:00 Actual Procedures p Attempted Closed Reduction of Dislocated Hip(Left) - Johnson Nicolas MD Operation Date: 09/13/23 20:00 Actual Procedures p Closed Reduction Dislocated Hip(Left) - William Ford MD Physical Therapy Treatment Note M2 PT-IP Current Condition Start: 09/14/23 09:00 Freq: NEEDED Status: Active Protocol: Document 09/14/23 11:34 AW (Rec: 09/14/23 13:11 AW [id number]) Physical Therapy Current Condition Current Condition Evaluation Date 09/14/23 Treatment Diagnosis left prosthetic hip dislocation s/o closed reduction; impaired mobility Onset Date 09/12/23 M3 PT-IP Subjective Start: 09/14/23 09:00 Freq: NEEDED Status: Active Protocol: Document 09/15/23 09:36 TS (Rec: 09/15/23 09:46 TS [id number]) Subjective Physical Therapy Visit Type Type Treatment Note Visit Start Time 09:08 Visit Stop Time 09:35 Number of IT PROJECT LEAD Visits 1 Physical Therapy Visit Comments Patient Comments Pt found resting in chair, OT in room, pt is agreeable to PT . Therapy Pain Assessment Pain When Pain Assessed During Mobility Pain Present Pain Present Pain Reported M4 PT-IP Mobility and Gait Start: 09/14/23 09:00 Freq: NEEDED Status: Active Protocol: Document 09/15/23 09:36 TS (Rec: 09/15/23 09:46 TS [id number]) PT-Bed Mobility Assessment Sit to Supine Sit to Supine Standby Assistance PT-Transfer Assessment Sit to and From Stand Sit to and from Stand Standby Assistance Equipment Transfer Assistive Device Gait Belt,Front Wheeled Walker Orthotic/Prosthetic Devices or Brace: Yes Comments Mobility Comments Knee brace was repositioned prior to mobility. STS from chair SBA with FWW, pt demonstrates good carryover of technique. She ambulated to toilet ~5' SBA. Pt performed own pericare. STS form toilet with use of FWW SBA. Pt ambulated ~30' in room SBA with step to gait with FWW. Pt was educated on hip precautions. Sit to supine into bed SBA. While in bed pt donned leg wedge with top straps for safety while in bed . Pt was left in bed, all needs met. Gait Assessment Gait Gait Assistance Required: Standby Assistance Distance (Feet) 35 Able to Maintain Weight Bearing Status Yes During Gait Assistive Devices Assistive Device Gait Belt,Front Wheeled Walker Orthotic/Prosthetic Devices or Brace: Yes Gait Deviations General Gait Pattern Antalgic,Decreased Stride Length,Decreased Feet Clearance,Flexed Trunk Factors Limiting Gait Function Factors Limiting Gait Function Decreased Strength,Limited Range of Motion,Pain Stair Climbing Assessment Comments Stair Climbing Comments No stairs at home. PT-Balance Assessment Sitting Balance and Reactions Static Sitting Balance Ability Normal Dynamic Sitting Balance Ability Normal Standing Balance and Reactions Static Standing Balance Ability Good Dynamic Standing Balance Ability Good Device Used FWW M5 PT-IP Objective Assessments Start: 09/14/23 09:00 Freq: NEEDED Status: Active Protocol: Document 09/14/23 11:34 AW (Rec: 09/14/23 13:11 AW [id number]) Orientation Orientation/Cognition Level of Alertness Alert Orientation Name,Day of Week,Place, Situation Language Function Ability No Deficits Noted Safety Awareness Understands Safety Issues Comments Benefits from cues for hip precautions. Gross Range of Motion Upper Extremity ROM Assessment Within Functional Limits Lower Extremity ROM Assessment Left Impaired Impairments secondary to knee immobilizer and hip pain Strength Upper Extremity Strength Assessment Within Functional Limits Lower Extremity Strength Assessment Left Impaired Hip 3/5 Comments Strength Comments R hip 4/5; R knee ext 4+/5; R ankle DF 4+/5 Sensation Assessment Sensation Gross Sensation WNL M6 PT-IP Treatment Start: 09/14/23 09:00 Freq: NEEDED Status: Active Protocol: Document 09/15/23 09:36 TS (Rec: 09/15/23 09:46 [id number]) Physical Therapy Treatment Education Education Provided Precautions,Weight Bearing Status,Safety Brace Education [place],Patient Equipment Issued Equipment Type and Company Dispensed knee immobilizer from [employer], per ortho orders. M7 PT-IP Assessment and Plan Start: 09/14/23 09:00 Freq: NEEDED Status: Active Protocol: Document 09/15/23 09:36 TS (Rec: 09/15/23 09:46 TS [id number]) PT Summary Assessment and Plan Potential Rehabilitation Potential Good Summary Impairments Pain,ROM,Strength,Balance,Bed Mobility,Transfers,Gait Progress Towards Goals Progressing Toward Goals Assessment Summary Genevieve is making good progress with her mobility. She is SBA for STS x2 with FWW. She ambulated short distances in room SBA with FWW. She was educated on her precautions and demonstrates good awareness with her mobility. PT is recommending home with assist and HHPT. Goals Bed Mobility Goal Standby Assistance Transfer Goal Standby Assistance,Front Wheeled Walker Gait Goal Standby Assistance,Front Wheel Walker Gait Distance 75 Other Goals - Pt maintains anterior and posterior hip precautions at all times. - Pt independently dons and doffs knee immobilizer. Days to Meet Goals 3 Frequency of Treatment Frequency Of Treatment Twice a Day Treatment Plan Physical Therapy Treatment Plan Bed Mobility Training,Transfer Training,Gait Training, Therapeutic Exercise,Balance Retraining,Discharge Planning, Hot or Cold Pack,Neuromuscular Re-ed Other Recommendations and Next Treatment Reinforce hip precautions. Focus Assess level of assist with knee immobilizer. Transfers. Ambulate as tolerated. Precautions Posterior Hip Precautions No Hip Flexion > 90 degrees,No Hip Internal Rotation,No Hip Adduction Anterior Hip Precautions No Hip Extension,No Hip External Rotation Brace Knee immobilizer at all times. Weight Bearing Status Weight Bearing Status Weight Bear as Tolerated Allowed Weight Bearing Amount (enter % WBAT LLE or #) (%) Recommendations To Nursing Amount of Assist Needed Standby Assistance Discharge Recommendations PT Discharge Recommendations Home with Assistance,Home Health Transportation Needs at Discharge Private Vehicle
--- NOTE | 2023-09-15 10:00 | OT.IP.EVAL ---
Current Diagnoses Unspecified dislocation of left hip, initial encounter (09/13/23) Surgery Performed Operation Date: 09/13/23 18:00 Actual Procedures p Attempted Closed Reduction of Dislocated Hip(Left) - Johnson Nicolas MD Operation Date: 09/13/23 20:00 Actual Procedures p Closed Reduction Dislocated Hip(Left) - William Ford MD Past Medical History (Last Reviewed 09/13/23 @ 17:43 by Johnson Nicolas MD) Gait instability Overactive bladder Occupational Therapy Inpatient Evaluation/Re-Eval M1 PT/OT-IP Prior Functional Status Start: 09/14/23 09:00 Freq: NEEDED Status: Active Protocol: Document 09/15/23 10:01 [facility] (Rec: 09/15/23 10:14 [facility] [id number]) Medical Review Prior Functional Status Medical History Reviewed Yes Communication Pt is an effective verbal communicator. Mobility and Gait Pt mobilizes with 4WW vs cane. Activities of Daily Living and IADL's Independent Social History Household Members none Living Arrangements House Number of Floors (Floors) One Floor Number of Stairs To Enter/Railing? Pt goes down a ramp to enter her ground floor living quarters. There are no stairs. Home Environment High Toilet,Walk in Shower Home Equipment Front Wheel Walker,Four Wheel Walker,Straight Cane,Shower Seat with Backrest,Smasher, Grab Bars In Shower Employment Status Retired Additional Social History Comment Pt lives on the ground level of a two story home. She just moved there two months ago. Her sister in law lives upstairs, but only supervisor slashing department ( splits her time between [place] and [place]). M2 OT-IP Current Condition Start: 09/15/23 10:01 Freq: Status: Active Protocol: Document 09/15/23 10:01 [facility] (Rec: 09/15/23 10:14 [facility] [id number]) Occupational Therapy Current Condition Current Condition Evaluation Date 09/15/23 Treatment Diagnosis S/P Closed reduction Disloated Left hip. Diagnosis Onset Date 09/13/23 Post Operative Precautions Posterior Hip Precautions No Hip Flexion > 90 degrees,No Hip Internal Rotation,No Hip Adduction Anterior Hip Precautions No Hip Extension,No Hip External Rotation Weight Bearing Status Weight Bearing Status Weight Bear as Tolerated M3 OT- IP Subjective and Pain Start: 09/15/23 10:01 Freq: Status: Active Protocol: Document 09/15/23 10:01 [facility] (Rec: 09/15/23 10:14 [facility] [id number]) OT- Subjective Occupational Therapy Visit Type Type Initial Evaluation Visit Start Time 09:00 Visit Stop Time 10:00 Notes Per chart pt to wear a knee immobilizer when up. Occupational Therapy Visit Comments Patient Comments Pt agreed to get up to use the bathroom. Patient/Caregiver Goals To go home.. OT Pain Assessment Pain When Pain Assessed At Rest Pain Present Pain Present Denied Pain M4 OT- IP ADL's Start: 09/15/23 10: Freq: Status: Active Protocol: Document 09/15/23 10: [facility] (Rec: 09/15/23 10:14 [facility] [id number]) OT [id number] General Evaluation Self-Feeding Ability Independent OT ADL-Grooming Comments OT Grooming Comments Pt did prior. OT ADL-Oral Care Comments Oral Care Comments Pt did prior. OT ADL-Dressing Comments OT Dressing Comments Pt showed pt sock aid and pt decided at this time will just not wear socks. OT ADL-Toileting General Evaluation Toileting Ability Standby Assistance Comments OT Toileting Comments Suggested pt get a BSC to place next to the bed as pt gets up frequently, also to wears briefs will be helpful. Educated pt to be mindful of her left leg positioning for ADL needs. Pt states may have a BSC at home but no bucket. Suggested to use that one over the toilet and get another one for next to the bed. OT ADL-Bathing Comments OT Bathing Comments Not performed. M5 OT- IP IADL's Start: 09/15/23 10: Freq: Status: Active Protocol: Document 09/15/23 10:01 [facility] (Rec: 09/15/23 10:14 [facility] [id number]) OT-Instrumental Activities of Daily Living Deficits IADL Deficits Identified Deficits Home Safety Awareness Awareness of Need for Assistance at Home Good Awareness Ability to Problem Solve Emergency Able to Problem Solve Situations Medication Management Medication Management No Deficits Identified Money Management Money Management No Deficits Identified Meal Preparation Meal Preparation Comments Pt will benefit from assist. Professor Of Visual Arts Professor Of Visual Arts Comments Pt will benefit from assist. M6 OT- IP Functional Cognition Start: 09/15/23 10:01 Freq: Status: Active Protocol: Document 09/15/23 10:01 [facility] (Rec: 09/15/23 10:14 [facility] [id number]) Cognitive Factors Limiting Selfcare Function Cognitive Ability Level of Alertness Alert Patient Orientation Name,Age,Birthday,Month,Date, Year,Day of Week,Place, Situation Attention Span Ability Capable of Focused Attention, Capable of Sustained Attention Ability to Follow Commands Able to Follow One Step Commands Cognitive Comments Cognitive Assessment Comments Pt able to follow commands for precautions. OT- Vision and Hearing OT- Hearing Assessment OT- Hearing Assessment WFL OT- Vision Assessment Visual Acuity Glasses For Reading Visual Attentiveness WFL Occular Pursuits WFL M7 OT- IP Mobility and Balance Start: 09/15/23 10:01 Freq: Status: Active Protocol: Document 09/15/23 10:01 [facility] (Rec: 09/15/23 10:14 [facility] [id number]) OT- Bed Mobility Assessment Rolling Level of Assistance Standby Assistance Supine to Sit Supine to Sit Assist Standby Assistance OT-Transfer Assessment Sit to and From Stand Sit to and from Stand Standby Assistance Transfers Transfer Ability Standby Assistance Technique Transfer Destination Bed,Chair,Toilet Comments Mobility Comments VC to keep her legs together for bed mobility and car transfer needs. Pt able to take small steps and lead with her LLE with FWW. OT- Balance Assessment Sitting Balance and Reactions Static Sitting Balance Ability Normal Dynamic Sitting Balance Ability Normal Standing Balance and Reactions Static Standing Balance Ability Good Dynamic Standing Balance Ability Good M8 OT- IP Objective Assessments Start: 09/15/23 10:01 Freq: Status: Active Protocol: Document 09/15/23 10:01 [facility] (Rec: 09/15/23 10:14 [facility] [id number]) OT Gross Range of Motion Upper Extremity Range of Motion Assessment Within Functional Limits OT Strength Upper Extremity Strength Assessment Within Functional Limits M9 OT- IP Assessment and Plan Start: 09/15/23 10:01 Freq: Status: Active Protocol: Document 09/15/23 10:01 [facility] (Rec: 09/15/23 10:14 [facility] [id number]) OT Summary Assessment and Plan Potential Rehabilitation Potential Excellent Analytic Complexity at Evaluation Low Summary OT Impairments Balance,Functional Mobility, Dressing,Bathing,Shower Transfers Progress Towards Goals Progressing Toward Goals Assessment Summary Pt low complexity and main barriers are dressing and bathing needs and to be able to follow both precautions. Pt wears compression stocking and best to have assist to katina/doff. Pt doing well overall and will benefit from assist with compression stocking, showering, and knee immobilizer management in addition to IADl needs. Pt to go home with assist and have home health. Goals Grooming Goal Independent Dressing Goal Independent,Smasher Toileting Goal Independent Bathing Goal Standby Assistance Toilet Transfer Goal Independent,Bedside Commode Shower Transfer Goal Standby Assistance Patient/Caregiver Education Goal Demonstrate Post-Op Precautions Days to Meet Goals 3 Frequency of Treatment Frequency Of Treatment Once a Day Treatment Plan OT Treatment Plan ADL Training,Functional Mobility,Patient/Family Education,Discharge Planning Discharge Recommendations OT Discharge Recommendations Home with 17/11 Assist Available,Home Health Home Equipment Needs [facility] Transportation Needs at Discharge Private Vehicle
--- NOTE | 2023-09-15 11:23 | CM.DPNOTE ---
DCP Note REHAB/PRE VOCATIONAL COUNSELOR reviewed EMR. Per Ortho PA, medically cleared to dc today. REHAB/PRE VOCATIONAL COUNSELOR confirmed with scheduling from [facility] pt's scheduled appt. Scheduled for 09/17/23 with 10:45am check in for 11am appointment. DONI Sosa emailed Jeanne from [facility] order, f2f, and notification of dc. Per OT, pt did well with eval. OT offered different equip suggestions, pt likely safe for home with HH and assistance. REHAB/PRE VOCATIONAL COUNSELOR met with pt in room, [facility] on speakerphone. Reviewed 10:45am f/u appt with Dr. Smith and dcp. Pt and [facility] in agreement to dc home today early afternoon with [facility] to follow. REHAB/PRE VOCATIONAL COUNSELOR updated RN on dc early afternoon. Plan: Dc home today with [facility] to transport in POV. Pt working on hiring [facility] for at least the short term. [facility] to follow. f/u with ortho office . CM team will continue to follow as needed. ALVA Granados
--- NOTE | 2023-09-15 13:11 | PC.NURSE ---
Pt is dressed and ready for discharge home with friend. IV has been removed. Went over d/c instructions with Pt - discussed d/c meds, time of last dose, reviewed stroke education, discussed hip precautions and safe movement, encouraged Pt to drink plenty of fluids to prevent constipation or dehydration and to follow up on 09/[address] Ford as scheduled. Pt is waiting to clarify with PT whethere she needs the knee brace and with hip brace at the same time and then will be taken out via w/c by WELDER FITTER APPRENTICE to POV with Friend and all belongings.
--- NOTE | 2023-09-15 13:24 | PC.NURSE ---
Pt up to void in the bathroom and a slightly pink tinge was visible within the urine. Pt denies pain or burning with urination. Pt states she will let the H/H RN know if this continues.
== END 2023-09-15 13:24 | disposition home or self-care (01) ==
LOC: ED 17:21 → AC 17:57
PROVIDERS: Orthopaedic Surgery Adult Reconstructive Orthopaedic Surgery; Admitting Provider Orthopaedic Surgery Orthopaedic Surgery of the Spine; Emergency Provider Emergency Medicine; PCP Family Medicine; Referring Provider Emergency Medicine; Visit Provider Orthopaedic Surgery Orthopaedic Surgery of the Spine
PROC: (CPT 27266; principal; 2023-09-13 18:00)
DX: T84.021A Dislocation of internal left hip prosthesis, initial encounter (principal)
CPT/HCPCS: 27266; 27265; 36415; 72170; 72192; 73501; 73502; 85014; 85018; 94762; 97162; 97165; 97530; 97535; 99152; 99153; 99285; G0378; J0330; J2405; J2704; J3010; J3490

== ENCOUNTER → 2023-09-17 12:26 | Outpatient (CLI) | payer OTHER, SELFPAY ==
[2023-09-13 18:24] VITALS: BMI 23.7
[2023-09-17 14:46] LABS: Hemoglobin A1C% w Est Avg Glu 5.1 % (4.0-6.0)
[2023-09-17 14:47] LABS: Add Manual Diff / Slide Review NO; Basophils Absolute Auto 0 /uL (0-100); Basophils Percent Auto 0.3 % (0-2); Eosinophils Absolute Auto 0 /uL (0-450); Eosinophils Percent Auto 0.4 % (2-4); Hematocrit 34.3 % (36-46); Hemoglobin 11.6 g/dL (12.0-16.0); Lymphocytes Absolute Auto 1300 /uL (1100-4500); Lymphocytes Percent Auto 30.3 % (25-40); Mean Corpuscular HGB Conc 33.8 % (30-36); Mean Corpuscular Volume 91.9 fL (80-100); Monocytes Absolute Auto 500 /uL (0-900); Monocytes Percent Auto 12.8 % (3-14); Neutrophils Absolute Auto 2300 /uL (1500-7000); Neutrophils Percent Auto 56.2 % (50-75); Platelet Count 190 X10^3/uL (150-400); Red Blood Cell Count 3.74 X10^6/uL (4.0-5.2); White Blood Cell Count 4.1 X10^3/uL (4.5-11.0)
[2023-09-17 15:00] LABS: Albumin 4.1 g/dL (3.5-5.0); BUN Creatinine Ratio 29.7 (6-22); Blood Urea Nitrogen 22 mg/dL (7-17); Calcium 9.5 mg/dL (8.4-10.2); Carbon Dioxide 30 mmol/L (22-32); Chloride 102 mmol/L (98-107); Estimated Glomerular Filt Rate > 60 mL/min (>60); Glucose 104 mg/dL (80-110); HEMOLYSIS < 15 (0-50); Potassium 4.4 mmol/L (3.4-5.1); Sodium 138 mmol/L (137-145)
[2023-09-17 15:07] LABS: Prealbumin 22.5 mg/dL (17.6-36.0)
[2023-09-17 15:41] LABS: Vitamin D 25 Hydroxy (D3) 24.8 ng/mL (30.0-100.0)
== END ==
PROVIDERS: PCP Family Medicine; Referring Provider Orthopaedic Surgery Adult Reconstructive Orthopaedic Surgery; Visit Provider Orthopaedic Surgery Adult Reconstructive Orthopaedic Surgery
DX: Z01.818 Encounter for other preprocedural examination (principal); E55.9 Vitamin D deficiency, unspecified; R73.9 Hyperglycemia, unspecified; R77.0 Abnormality of albumin; Z01.812 Encounter for preprocedural laboratory examination
CPT/HCPCS: 36415; 80048; 82040; 82306; 83036; 84134; 85025; 93005

== ENCOUNTER 2023-10-09 06:01 | Inpatient (IN) | payer OTHER, SELFPAY ==
[2023-09-13 18:24] VITALS: BMI 23.7
[2023-09-29 12:48] VITALS: BMI 23.7
[2023-10-09] VITALS (19 sets, daily range): BP systolic 68–159; BP diastolic 42–82; PULSE 77–104; RESP 10–18; TEMP 36.2–37.1; O2SAT 94–100; BMI 24.3
--- NOTE | 2023-10-09 | DI.RAD.S_ITS ---
PROCEDURE: XR HIP W PEL IF DONE LT 2V INDICATIONS: LT HIP ACETABULAR COMPONENT EXCHANGE. TECHNIQUE: Intraoperative views during left hip arthroplasty COMPARISON: [facility], CR, XR HIP W PEL IF DONE LT 2V, 09/13/2023, 20:16. [facility], CR, XR HIP W PEL IF DONE LT 2V, 09/13/2023, 14:10. FINDINGS: Bones: Intraoperative views during left hip arthroplasty demonstrate appropriate position of the hardware. IMPRESSION: Intraoperative views during left hip arthroplasty demonstrate appropriate position of the hardware. Dictated by: Jose Elias Singh M.D. on 10/09/2023 at 12:48 Approved by: Jose Elias Singh M.D. on 10/09/2023 at 12:49
--- NOTE | 2023-10-09 06:00 | DI.RAD.S_ITS ---
PROCEDURE: XR HIP W PEL IF DONE LT 2V INDICATIONS: JULIANNE TECHNIQUE: AP pelvis and lateral view of the hip acquired. COMPARISON: [facility], CR, XR HIP LT 1V, 09/13/2023, 18:05. [facility], CR, XR HIP W PEL IF DONE LT 2V, 09/13/2023, 20:16. [facility], CR, XR HIP W PEL IF DONE LT 2V, 10/09/2023, 8:15. [facility] [place], CR, XR PELVIS WITH LATERAL HIP LEFT, 09/17/2023, 11:14. FINDINGS: Bones: Patient is status post revision of the acetabular cup of a total left hip arthroplasty with improvement in angulation of the acetabular cup, which has a less vertical configuration, with hardware components in expected positions. The hip joint appears congruent. The visualized bony structures appear intact. Soft tissues: Overlying postoperative changes are noted. No suspicious soft tissue densities. IMPRESSION: Expected immediate postoperative appearance post revision of the acetabular component of a total left hip arthroplasty. The improved configuration is less likely to dislocate. Dictated by: Enzo Snider M.D. on 10/09/2023 at 15:05 Approved by: Enzo Snider M.D. on 10/09/2023 at 15:07
[2023-10-09] MEDS: LACTATED RINGERS 1,000 ML 42 ML IV ×3 (06:45→11:16)
[2023-10-09] MEDS: ACETAMINOPHEN 325 MG TABLET 975 MG PO (07:00)
[2023-10-09] MEDS: MELOXICAM 7.5 MG TABLET 15 MG PO (07:00)
--- NOTE | 2023-10-09 07:36 | PM.PREOP ---
Pre-operative Note Interval Note History & Physical reviewed/Exam performed by Physician: Yes Changes to H&P: No
[2023-10-09] MEDS: CEFAZOLIN 2 GM/100 ML PREMIX 100 ML IV ×2 (07:46→18:20)
[2023-10-09] MEDS: TRANEXAMIC ACID 1,000 MG VIAL 1000 MG INJ ×2 (08:00→11:16)
[2023-10-09] MEDS: ROPIVACAINE/EPI/CLONIDINE/KET 50 ML SYRINGE INJ (08:44)
--- NOTE | 2023-10-09 08:51 | SUR.OPER ---
Supine on padded [place] table with bilateral legs secured in padded positioning boots and suspended in positioning spars, operative leg in traction per surgeon. Head on one pillow. Arm on non-operative side secured on padded armboard <90 degrees abduction. Arm on operative side padded and resting across chest then secured with tape over sheet. Padded perineal post in place per surgeon.
--- NOTE | 2023-10-09 11:42 | P.OP_ITS ---
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 Post-op diagnosis: same Procedure & Clinicians Procedure: Revision of acetabular component of left total hip arthroplasty with conversion to dual mobility articulation through an anterior approach Same procedure as scheduled: Yes Surgeon: William Ford Marketing Liaison: Hollie Butler Anesthesia Type: Spinal, Sedation and Local Operative Notes Estimated Blood Loss (mL): 800 Procedure in detail: Revision acetabular component of left total hip arthroplasty with conversion to dual mobility articulation and retention of femoral stem through direct anterior approach: Implants: * Rocklake revision multi hole Gription size 58 cup?with 4 screws * 58/49 pinnacle modular dual mobility liner * Retained S-ROM femoral stem * 28 mm +5 Biolox ceramic femoral head on 03/09 taper * 49/28 Bimentum Altrx liner Procedure Summary: This 88-year-old female patient presented to the hospital with a dislocated left hip approximately 3 weeks ago. A closed reduction attempt was performed by my partner who was on-call which was unsuccessful. I was contacted at that time for assistance with her case. I performed a closed reduction with the aid of the [place] table and followed up with her outpatient. She reported that she had had her initial total hip arthroplasty performed in approximately 2003 with a subsequent revision for instability in approximately 2006. These were both performed in [place] and we were unable to obtain operative note describing the procedures. She described the mechanism of her most recent dislocations as most consistent with anterior dislocation but believed that she had previously had posterior dislocations prior to her initial revision which was performed for instability. She states that she has had 5 dislocations since her revision. Her postreduction CT scan demonstrated that the cup was anteverted to 40? and was relatively vertically positioned on a standing AP radiograph, although the quality of the standing AP radiograph was somewhat limited by her positioning because of her use of a hip abduction brace. Additionally given the age of her cup, which was a Duraloc cup, I would be unable to convert her to dual mobility with cup retention. I therefore planned for a cup revision rather than retaining the prior cup. Constrained liners were also available on backup should I have persistent instability after placement of dual mobility trials. Prior to prepping and draping I evaluated stability. With external rotation I was able to sublux the femoral head anteriorly. I was unable to achieve a similar effect by testing posterior instability with flexion adduction internal rotation and posterior directed pressure. This assessment aligned with the history she had provided describing a dislocation mechanism most consistent with anterior dislocation. Fluoroscopic images demonstrating that anterior subluxation with her [address] were saved. Intraoperatively I found that she had a lipped liner in place. This had been positioned anteriorly and the femoral head had significant pencil hirsch anteriorly as well. This again aligned with my assessment that she had been having anterior dislocations. The placement of the lip liner anteriorly rather than posteriorly as would typically be expected of the posterior approach she had previously had further indicated to me that her issue had likely been anterior dislocation since her primary surgery. This confirmed my plan to revise the cup. I removed the lipped liner because I would be unable to use the Jesenia cup out with the lipped liner in place and placed a liner trial. I removed the old Duraloc cup and placed a Rocklake multi hole cup with multiple screws including 1 extending inferiorly towards the pubic ramus to achieve some inferior fixation as this has been shown to decrease cup sided fixation failure as compared to superior screws alone. The explanted 28 mm head was a +0 and I upsized to a +6. This no instability with maximum external rotation to past 130? and no instability with a 45 degree drop test. Leg lengths was appropriate with the use of a long metal bar across the trans ischial line to control for fluoroscopic distortion. Procedure in Detail: This patient was seen preoperatively and evaluated for recurrent hip dislocation. She was counseled regarding operative versus nonoperative management of her hip instability. She had had 5 dislocations since her most recent revision. In particular I explained that there was a very high risk of recurrent instability following revision total hip arthroplasty for instability. With this understanding of the risks inherent to the procedure, the patient elected to move forward with operative management. Following preoperative optimization, the patient was scheduled for surgery. The patient was met in the preoperative holding area the day of the procedure and all questions were answered. The patient?s nares were swabbed with betadine in order to decolonize them from MRSA. Informed consent was signed and the left limb was marked with indelible ink.? The patient was brought back to the operating room where anesthesia was induced. The patient was transferred to the [place] table and all bony prominences were padded. The operative site was prepped and draped in the usual sterile fashion. Prior to incision, tranexamic acid and cefazolin were administered. Operative templating images were displayed demonstrating the anticipated implant sizes and correct operative extremity. A timeout procedure was performed verifying the patient?s identity, medical comorbidities, allergies, relevant medications, anesthesia type and the surgical plan. All present were in agreement. The assistance of a physician music assistant was required for positioning, room setup, soft tissue retraction and wound closure. Without this assistance, the procedure would have been significantly more challenging and time consuming.?? A direct anterior approach to the hip was utilized. This was performed with a longitudinal incision through a Heuter interval. The incision was planned 2 cm distal and 2 cm lateral to the ASIS extending towards the lateral patella, in line with the muscle body of the TFL. Following incision, the subcutaneous tissue was dissected while taking care to avoid injury to the lateral femoral cutaneous nerve. The fascia overlying the TFL was identified by dissecting off the overlying fat and identifying perforating vessels to the TFL. The TFL fascia was incised and dissected away from the medial border of the TFL. A cobra retractor was placed over the superior femoral neck between the abductors and the hip capsule and used to reflect the TFL laterally. A Marinette self-retainer was then placed in the distal aspect of the wound between the TFL and the rectus femoris. This was tensioned to open up the direct anterior interval and the lateral circumflex vessels were identified and coagulated using electrocautery. The floor of the TFL fascia was incised, exposing the pericapsular fat overlying the hip capsule. A second cobra retractor was placed on the inferior femoral neck. A double-bent soft tissue retractor was placed on the anterior wall of the acetabulum and used to tension the reflected head of rectus femoris, which was then released in order to limit soft tissue tension. A capsulotomy was made in the midline of the anterior hip capsule in line with the femoral neck ending at the vastus tubercle. The double-bent retractor was removed in order to limit the amount of time that a soft tissue retractor remained on the anterior wall and protect the femoral nerve. Tag stitches were placed in the superior and inferior leaflets of the hip capsule. An Apollo soft tissue retractor was introduced over the tag stitches and tensioned in the interval between the rectus femoris and the TFL in order to retract and protect those muscles. The cobra retractors were replaced intracapsularly, with one over the neck of the prosthesis in the pocket created by the base of the greater trochanter and the other on calcar of the prosthesis. The capsulotomy was extended laterally to the base of the greater trochanter and medially to the lesser trochanter. This required externally rotating the hip. Once the lesser trochanter had been identified the retractors were replaced intracapsularly. A broad anterior wall retractor was placed over the anterior wall. A deep specimen from the hip capsule was obtained and sent for culture although there was no intraoperative appearance consistent with infection. The hip was placed in 45? of internal rotation and traction was applied. The femoral head was then impacted into the polyethylene to disengaged from the most taper. The hip was dislocated and the femoral head was removed. Itching were inspected to determine the exact size of the femoral head. These indicated it was a 28+ 0 femoral head. The trunnion was then pushed into a pocket posterior to the posterior wall and held in that position with a posterior wall retractor. A series of osteotomes was used to remove the polyethylene insert. The locking ring holding the polyethylene insert was likewise removed. A 36 mm liner trial was threaded into the old cup and a [employer] cup out osteotome instrument was used to extract the cup. Etching on the polyethylene indicated that it had been a 56 mm cup. The cup was removed with minimal bone loss. A 57 mm Reamer was introduced and used to deep in the acetabular preparation. There was sufficient remaining bone stock with a central defect which was well contained. Both the anterior and posterior wall were intact. Reaming was very minimal as the posterior and anterior wall were relatively thin. Bone graft from the Reamer was placed into the central defect. A multi hole 58 mm cup was introduced and manipulated into position. This was evaluated fluoroscopically until I was satisfied with the abduction and anteversion angles. The cup was positioned at less than 45? of abduction and was clearly flatter than the initial cup. Anteversion was set so that the rim of the acetabular component was just underneath the anterior wall. Once satisfied with the positioning of the cup multiple screws were placed to hold it in position. This included 3 screws up the ilium and 1 extending medially towards the pubic ramus. I confirmed that the cup was stable with manual testing and then placed a dual mobility liner. The hip was hyperextended and adducted and the trunnion was exposed. I did not perform any additional capsular or conjoined tendon releases as I was able to obtain exposure to the trunnion without them. I placed trial components and reduced the hip. Initial trialing was performed with a +6 offset neck and a dual mobility head. I initially manually externally rotated the hip and found I was unable to dislocate it. I then locked the hip in 45 degrees of external rotation and dropped it to the floor with traction off which demonstrated no instability. An AP pelvis fluoroscopic image matching the preoperative standing radiograph with both lesser trochanters visible and both hips in 40 degrees of external rotation demonstrated appropriate leg lengths. The hip was dislocated and I returned to the broaching position. Based on my evaluation during initial trialing I planned to place these final components. The dual mobility components were assembled on the back table. Because the old S-ROM stem had an 1113 trunnion, an 11/13 28 mm +6 ceramic head was used with the dual mobility polyethylene liner. Because the assembly instrumentation is designed for more modern taper geometry, the ceramic head fully engaged the Bergman taper mechanism with the plastic piece which holds the femoral head in place during dual mobility head assembly. Even after disassembling the dual mobility assembly locking clamp the plastic piece remained fully engaged and it was challenging from the femoral head. This added significant time to the procedure. Once it was eventually removed the trunnion was cleaned and dried. I placed a ceramic head onto the trunnion and impacted it into place on the Bergman taper.?? All retractors were removed and the hip was reduced. A dilute mixture of betadine and peroxide was used to bathe the soft tissues during final fluoroscopic assessment. Appropriate component positioning was confirmed on an AP pelvis radiograph with the operative and nonoperative legs in 40 degrees of external rotation, evaluating leg length and offset. An AP fluoroscopic image of the old stem was also obtained. No fractures were identified on these radiographs. There was no hip instability with maximum external rotation as well as a 45 degree drop test. The hip was copiously irrigated with pulse lavage. The capsule was closed with absorbable interrupted suture. The TFL fascia was closed with barbed suture while carefully protecting the lateral femoral cutaneous nerve from entrapment. A mixture of Ropivacaine, Epinephrine, Clonidine and Toradol was infiltrated throughout the soft tissues. The skin was closed with 2-0 and 3-0 sutures. Surgical glue was applied and a soft dressing was placed.??The sponge, instrument and needle counts were reported as being correct at the end of the case.??No obvious complications occurred. The patient was transferred from the [place] table back to a stretcher. The patient emerged from anesthesia without difficulty and was taken to the PACU in a stable condition.? Plan for aftercare: * Both anterior hip precautions and posterior hip precautions * Weightbearing as tolerated * Aspirin 81 twice per day for DVT prophylaxis * Anticipate discharge to a intermediate facility as the patient lives alone and does not have help locally * Multimodal pain regimen with no IV opioids ordered * Apply ice machine to operative hip. Ensure that sufficient ice is in the chamber for the pad to remain cold * Follow up at [facility] in 2 weeks * Detailed postoperative instructions available at [email or web address]
[2023-10-09 12:27] LABS: Add Manual Diff / Slide Review NO; Basophils Absolute Auto 0 /uL (0-100); Basophils Percent Auto 0.2 % (0-2); Eosinophils Absolute Auto 0 /uL (0-450); Eosinophils Percent Auto 0.1 % (2-4); Hematocrit 25.8 % (36-46); Hemoglobin 8.7 g/dL (12.0-16.0); Lymphocytes Absolute Auto 700 /uL (1100-4500); Lymphocytes Percent Auto 9.7 % (25-40); Mean Corpuscular HGB Conc 33.7 % (30-36); Mean Corpuscular Hemoglobin 31.1 PG (26-34); Mean Corpuscular Volume 92.2 fL (80-100); Monocytes Absolute Auto 400 /uL (0-900); Monocytes Percent Auto 5.4 % (3-14); Neutrophils Absolute Auto 5900 /uL (1500-7000); Neutrophils Percent Auto 84.6 % (50-75); Platelet Count 164 X10^3/uL (150-400); Red Blood Cell Count 2.79 X10^6/uL (4.0-5.2); Red Cell Distribution Width 13.4 % (11.6-14.8)
--- NOTE | 2023-10-09 12:47 | P.PN_ITS ---
Subjective Subjective Interval history: Patient seen postoperatively in the PACU. She reports pain as minimal in the operative hip. She says it is a 2/10. She is mentating appropriately. She has intact sciatic nerve function as evidenced by her ability to flex and extend her hallux and ankle on her bilateral lower extremities and intact sensation in her feet. She has a warm and well-perfused foot. She has been hypotensive in the PACU so we are planning to obtain a CBC and also administer albumin. Exam Vital Signs (past 8 hours): - 10/09/23 07:01 10/09/23 12:03 Temperature 98 F 98.3 F Pulse Rate 77 101 H Respiratory Rate 16 14 Blood Pressure 159/82 H 93/61 Pulse Oximetry 99 98 Oxygen Delivery Method Room Air Nasal Cannula Oxygen Flow Rate 2 Oxygen Delivery Method Nasal Cannula Oxygen Flow Rate 2 Objective Labs 10/09/23 12:15 Labs: Laboratory Results - last 24 hr 10/09/23 12:15 WBC 7.0 RBC 2.79 L Hgb 8.7 L Hct 25.8 L MCV 92.2 MCH 31.1 MCHC 33.7 RDW 13.4 Plt Count 164 Neut % (Auto) 84.6 H Lymph % (Auto) 9.7 L [place] % (Auto) 5.4 Eos % (Auto) 0.1 L Baso % (Auto) 0.2 Neut # (Auto) 5900 Lymph # (Auto) 700 L [place] # (Auto) 400 Eos # (Auto) 0 Baso # (Auto) 0 PFSH Medical History Memory changes Depression History of revision of total replacement of left hip joint (2006) Hearing impaired Glaucoma Recurrent dislocation, left hip Gait instability Overactive bladder Surgical History Hx of tubal ligation Hx of appendectomy Hx of tonsillectomy History of hysterectomy Hx of hernia repair (2015) Hx of bilateral cataract extraction History of total right hip replacement (2002) History of total left hip replacement Hx of laminectomy (1986) History of surgery (09/13/23) Social History household members: none Smoking Status: Never smoker alcohol intake: current
[2023-10-09] MEDS: ALBUMIN HUMAN 12.5 GM/250 ML VIAL IV ×2 (12:50→14:25)
[2023-10-09] MEDS: ACETAMINOPHEN 325 MG TABLET 650 MG PO ×2 (14:24→20:12)
[2023-10-09] MEDS: IBUPROFEN 600 MG TABLET PO ×2 (14:37→20:12)
--- NOTE | 2023-10-09 14:45 | PC.NURSE ---
Addendum entered by Anupama Connor R.N. 10/09/23 19:08: Patient became orthostatic and BP 70's/40's with dizziness upon getting out of bed with PT. Secrist notified and patient given 1 Liter LR bolus. Per MD patient to just get up to use BSC overnight and will reassess ambulating tomorrow. Original Note: Patient arrived to room 208 this afternoon at approximately 1340 this afternoon. She reports pain is well controlled, slight numbness to outer L thigh. Patient denies dizziness, n/v, diaphoresis or symtpoms of hypotension. Initially SBP 140's /80's upon following check BP 80's /50's. Patient's albumin ordered is hanging. She is oriented to room, SCD's placed, hip precautions, q 2 turning, admission assessment completed, IVF LR at 100ml/hr. Continuous monitoring
[2023-10-09] MEDS: LACTATED RINGERS 1,000 ML 100 ML IV ×2 (15:00→21:57)
--- NOTE | 2023-10-09 16:20 | PT.IIE ---
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) Hx of appendectomy Hx of bilateral cataract extraction Hx of hernia repair (2015) Hx of laminectomy (1986) Hx of tonsillectomy Hx of tubal ligation Medical History (Last Reviewed 10/09/23 @ 06:45 by Jocelyne Champagne, MYAH) Depression Gait instability Glaucoma Hearing impaired History of revision of total replacement of left hip joint (2006) Memory changes Overactive bladder Recurrent dislocation, left hip Physical Therapy Inpatient Evaluation/Re-Eval M1 PT/OT-IP Prior Functional Status Start: 10/09/23 18:17 Freq: NEEDED Status: Active Protocol: Document 10/09/23 16:20 AB (Rec: 10/09/23 18:38 AB [id number]) Medical Review Prior Functional Status Medical History Reviewed Yes Communication able to make needs known; very [place]; has memory issues Mobility and Gait pt stated that she was modified independent with all mobilities and ambulation using a 4WW Social History Household Members none Living Arrangements House Number of Floors (Floors) Two Floors Number of Stairs To Enter/Railing? pt stays on main level of the house ([id number] lives in 2nd level of the house but does not stay in there all the time). ramp to enter Home Environment Standard Height Toilet,Walk in Shower,Ramp Home Equipment Front Wheel Walker,Four Wheel Walker,Straight Cane,Raised Toilet Seat w/Armrests,Shower Seat with Backrest,Hand Held Shower,Grab Bars Near Toilet, Grab Bars In Shower Additional Social History Comment has a route specialist that comes in every 3 days for ~ 1 hour to assist with house chores M2 PT-IP Current Condition Start: 10/09/23 18:17 Freq: NEEDED Status: Active Protocol: Document 10/09/23 16:20 AB (Rec: 10/09/23 18:38 AB [id number]) Physical Therapy Current Condition Current Condition Evaluation Date 10/09/23 Treatment Diagnosis s/p L JULIANNE revision; difficulty in walking Onset Date 10/09/23 M3 PT-IP Subjective Start: 10/09/23 18:17 Freq: NEEDED Status: Active Protocol: Document 10/09/23 16:20 AB (Rec: 10/09/23 18:38 AB [id number]) Subjective Physical Therapy Visit Type Type Initial Evaluation Visit Start Time 16:20 Visit Stop Time 17:40 Notes reviewed EMR and per Dr. Ford's opereative note: abductor hip brace on. No orders found. Called Dr. Ford to clarify hip abductor brace protocols: 70 deg flexion and 0 deg extension and on when out of bed. Dr. Ford said that he will put in orders. Number of MIRROR INSTALLER Visits 0 Therapy Pain Assessment Pain When Pain Assessed At Rest Pain Present Pain Present Pain Reported Location Left Hip Intensity 2 Scale Used Numeric (0 - 10) Pain Management Techniques Distraction,Modification of Treatment,Re-positioning, Timing of Activity with Medications M4 PT-IP Mobility and Gait Start: 10/09/23 18:17 Freq: NEEDED Status: Active Protocol: Document 10/09/23 16:20 AB (Rec: 10/09/23 18:38 AB [id number]) PT-Bed Mobility Assessment Supine to Sit Supine to Sit Maximum Assistance,2 Person Assistance,Head of Bed Elevated,Bedrails Sit to Supine Sit to Supine Total Assistance,2 Person Assistance Scooting Scooting to Edge of Bed Maximum Assistance PT-Transfer Assessment Sit to and From Stand Sit to and from Stand Maximum Assistance,2 Person Assistance,Use of Upper Extremities Equipment Transfer Assistive Device Gait Belt,Front Wheeled Walker Orthotic/Prosthetic Devices or Brace: No Comments Mobility Comments pt supine in bed. obtained PLOF and home set up from pt. post-op folders provided to pt and reviewed contents. pt educated on posterior and anterior hip precautions for LLE. pt has memory issues and unable to recall hip precautions. BP in supine: 93 /60 rechecked: 105/58. Fitting and adjusted hip abductor brace on pt. pt completed log roll max A x 1-2 and max cues. total A for donning of abductor hip brace. pt completed supine to sit max A x 2 and max cues. pt was able to sit on EOB mn A for sitting balance initially and able to sit SBA to CGA after repositioning. max A for scooting to EOB. BP in sittin/42. pt tolerated sitting for ~ 2 more minutes. BP checked again: 104/60. completed sit to stand max A x 2 and max cues. c/o dizziness. attempted to take steps towards HOB for positioning but pt unable with (+) L knee buckling. total A x 2 to sit on EOB and total A x 2 for sit to supine. BP in supine: 75/44. positioned pt in trendelenburg position and BP: 117/60. positioned pt in bed. asked pt if she want hip abductor brace off since the doctor ordered it only when out of bed. pt stated that she wants to leave it on. call light and table placed within reach. Left pt with OT. BP in supine at end of PT session: 101/46. PT-Balance Assessment Sitting Balance and Reactions Static Sitting Balance Ability Fair Dynamic Sitting Balance Ability Poor Standing Balance and Reactions Static Standing Balance Ability Poor Dynamic Standing Balance Ability Poor Device Used FWW M5 PT-IP Objective Assessments Start: 10/09/23 18:17 Freq: NEEDED Status: Active Protocol: Document 10/09/23 16:20 AB (Rec: 10/09/23 18:38 AB [id number]) Orientation Orientation/Cognition Level of Alertness Alert Orientation Name,Place,Situation Language Function Ability Hard of Hearing Safety Awareness Decreased Safety Awareness Memory Description Short Term Impaired,Glue Specialty Supervisor Impaired Gross Range of Motion Lower Extremity ROM Assessment Within Functional Limits Strength Lower Extremity Strength Assessment Left Impaired Hip 3+/5 Knee 3+/5 Muscle Tone Muscle Tone WNL Yes M6 PT-IP Treatment Start: 10/09/23 18:17 Freq: NEEDED Status: Active Protocol: Document 10/09/23 16:20 AB (Rec: 10/09/23 18:38 AB [id number]) Physical Therapy Treatment Education Education Provided Precautions,Weight Bearing Status,Post-Op Packet,Safety M7 PT-IP Assessment and Plan Start: 10/09/23 18:17 Freq: NEEDED Status: Active Protocol: Document 10/09/23 16:20 AB (Rec: 10/09/23 18:38 AB [id number]) PT Summary Assessment and Plan Potential Rehabilitation Potential Fair Status of Condition at Evaluation Evolving Summary Impairments Pain,ROM,Strength,Balance, Coordination,Sensation,Tone, Cognition,Bed Mobility, Transfers,Gait,Activity Tolerance Assessment Summary pt is an 88 y/o F who had multiple hip dislocations on LLE and reductions. pt s/p L JULIANNE revision anterior approach POD 0 but will have both posterior and anterior hip precautions. pt is WBAT. pt also has L hip abductor brace order for when out of bed. pt requiring max A x 2 to total A x 2 with mobility at this time. pt also unable to recall her hip precautions and is a high fall risk and high recurrent of hip dislocations. pt will require SNF rehab to improve mobility. will continue to assess. Goals Bed Mobility Goal Minimal Assistance Transfer Goal Minimal Assistance,Front Wheeled Walker Gait Goal Minimal Assistance,Front Wheel Walker Gait Distance 50 Other Goals improve bed mobility, transfers, ambulation using FWW SBA ~ 150 ft Days to Meet Goals 10 Frequency of Treatment Frequency Of Treatment Twice a Day Treatment Plan Physical Therapy Treatment Plan Bed Mobility Training,Transfer Training,Gait Training, Therapeutic Exercise,Balance Retraining,Post Op Education, Discharge Planning,Hot or Cold Pack,Neuromuscular Re-ed, Coordination Retraining,Manual Therapy Precautions Posterior Hip Precautions No Hip Flexion > 90 degrees,No Hip Internal Rotation,No Hip Adduction Anterior Hip Precautions No Hip Extension,No Hip External Rotation Weight Bearing Status Weight Bearing Status Weight Bear as Tolerated Allowed Weight Bearing Amount (enter % LLE WBAT or #) (%) Recommendations To Nursing Amount of Assist Needed Mechanical Lift Discharge Recommendations PT Discharge Recommendations SNF Rehab Transportation Needs at Discharge Wheelchair/Cabulance
--- NOTE | 2023-10-09 17:38 | OT.IP.EVAL ---
Current Diagnoses Unspecified dislocation of left hip, initial encounter (10/09/23) Surgery Performed Operation Date: 10/09/23 07:45 Actual Procedures p acetabular component exchange of total hip arthroplasty for recurrent dislocation(Left) - William Ford MD Past Medical History (Last Reviewed 10/09/23 @ 06:45 by Jocelyne Champagne, RN) Depression Gait instability Glaucoma Hearing impaired History of revision of total replacement of left hip joint (2006) Memory changes Overactive bladder Recurrent dislocation, left hip Surgical History (Last Reviewed 10/09/23 @ 06:45 by Jocelyne Champagne, RN) History of hysterectomy History of surgery (09/13/23) 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 Activities of Daily Living and IADL's Pt states able to do all her ADL needs except for her socks . Social History Household Members none Living Arrangements House Number of Stairs To Enter/Railing? Pt has a ramp to enter and her sister in law lives upstairs but does not live there all the time. Home Environment High Toilet,Walk in Shower Home Equipment Front Wheel Walker,Four Wheel Walker,Straight Cane,Bedside Commode,Raised Toilet Seat w/ Armrests,Shower Seat with Backrest,Hand Held Shower, Field Map Editor,Grab Bars Near Toilet, Grab Bars In Shower M2 OT-IP Current Condition Start: 10/09/23 18:32 Freq: Status: Active Protocol: Document 10/09/23 18:33 [facility] (Rec: 10/09/23 19:08 [facility] [id number]) Occupational Therapy Current Condition Current Condition Evaluation Date 10/09/23 Treatment Diagnosis S/P revision LTHA with conversion to dual mobility articulation thru anterior approach Diagnosis Onset Date 10/09/23 Post Operative Precautions Posterior Hip Precautions No Hip Flexion > 90 degrees,No Hip Internal Rotation,No Hip Adduction Anterior Hip Precautions No Hip Extension,No Hip External Rotation Other Precautions Abductor brace when up. Set at 70 degrees flexion and 0 extension. Weight Bearing Status Weight Bearing Status Weight Bear as Tolerated M3 OT- IP Subjective and Pain Start: 10/09/23 18:32 Freq: Status: Active Protocol: Document 10/09/23 18:33 [facility] (Rec: 10/09/23 19:08 [facility] [id number]) OT- Subjective Occupational Therapy Visit Type Type Initial Evaluation Visit Start Time 16:20 Visit Stop Time 17:38 Occupational Therapy Visit Comments Patient Comments Pt agreed to try to get up. Patient/Caregiver Goals To go to skilled rehab. OT Pain Assessment Pain When Pain Assessed At Rest Pain Present Pain Present Pain Reported Location Left Hip Intensity 2 Scale Used Numeric (0 - 10) M4 OT- IP ADL's Start: 10/09/23 18:32 Freq: Status: Active Protocol: Document 10/09/23 18:33 [facility] (Rec: 10/09/23 19:08 [facility] [id number]) OT [id number] Comments OT Self-Feeding Comments Not at meal time. OT ADL-Grooming Comments OT Grooming Comments Pt able to wash her face and hands with wash cloth after set-up. OT ADL-Oral Care Comments Oral Care Comments Not performed. OT ADL-Dressing General Eval Lower Body Dressing Ability Total Assistance Areas Needing Assistance Underpants/Brief,Socks, Orthosis/Prosthesis Comments OT Dressing Comments Pt dependent for brief, abductor brace, and socks at this time. OT ADL-Toileting General Evaluation Toileting Ability Total Assistance Comments OT Toileting Comments Pt is dependent at this time. OT ADL-Bathing Comments OT Bathing Comments Sponge bath more appropriate at this time. M5 OT- IP IADL's Start: 10/09/23 18:32 Freq: Status: Active Protocol: Document 10/09/23 18:33 [facility] (Rec: 10/09/23 19:08 [facility] [id number]) OT-Instrumental Activities of Daily Living Deficits IADL Deficits Identified Deficits Home Safety Awareness Awareness of Need for Assistance at Home Good Awareness Home Safety Comments Pt having a bit groggy and having difficulty to follow command and recall her hip precautions. At this time pt will need assist for all ADL and mobility needs. M6 OT- IP Functional Cognition Start: 10/09/23 18:32 Freq: Status: Active Protocol: Document 10/09/23 18:33 [facility] (Rec: 10/09/23 19:08 [facility] [id number]) Cognitive Factors Limiting Selfcare Function Cognitive Ability Level of Alertness Drowsy Patient Orientation Name,Place,Situation Attention Span Ability Capable of Focused Attention, Unable to Sustain Attention Ability to Follow Commands Able to Follow One Step Commands with Increased Time, Able to Follow One Step Commands with Repetition Memory Description Short Term Impaired Safety Awareness Decreased Recall of Precautions,Decreased Ability to Apply Precautions Cognitive Comments Cognitive Assessment Comments Pt not able to recall her precautions after multiple verbal and visual cues. Pt just having surgery today and a bit groggy at this time. Pt admits at home probably not following her precautions as exact as being educated to pt for positioning in bed, mobilization and for ADL needs . OT- Vision and Hearing OT- Hearing Assessment OT- Hearing Assessment Hearing Impaired,Use of Hearing Aids OT- Vision Assessment Visual Acuity Glasses For Reading Visual Attentiveness WFL Occular Pursuits WFL M7 OT- IP Mobility and Balance Start: 10/09/23 18:32 Freq: Status: Active Protocol: Document 10/09/23 18:33 [facility] (Rec: 10/09/23 19:08 [facility] [id number]) OT- Bed Mobility Assessment Supine to Sit Supine to Sit Assist Maximum Assistance,2 Person Assistance Sit to Supine Sit to Supine Assist Maximum Assistance,2 Person Assistance OT-Transfer Assessment Sit to and From Stand Sit to and from Stand Maximum Assistance,2 Person Assistance Comments Mobility Comments MAXA x 2 to assist to get to the edge of the bed. Attempted to stand and MAX AX 2 to FWW and LLE buckling. BP supine 93 /60 and 105/58, sitting 84/42 and 104/60, and after standing up 75/44 - pt very dizzy and hypotensive. OT- Balance Assessment Sitting Balance and Reactions Static Sitting Balance Ability Fair Dynamic Sitting Balance Ability Poor Standing Balance and Reactions Static Standing Balance Ability Poor Dynamic Standing Balance Ability Poor M8 OT- IP Objective Assessments Start: 10/09/23 18:32 Freq: Status: Active Protocol: Document 10/09/23 18:33 [facility] (Rec: 10/09/23 19:08 [facility] [id number]) OT Gross Range of Motion Upper Extremity Range of Motion Assessment Within Functional Limits OT Strength Upper Extremity Strength Assessment Within Functional Limits M9 OT- IP Assessment and Plan Start: 06/14/24 18:32 Freq: Status: Active Protocol: Document 10/09/23 18:33 [facility] (Rec: 10/09/23 19:08 [facility] [id number]) OT Summary Assessment and Plan Potential Rehabilitation Potential Good Analytic Complexity at Evaluation Moderate Summary OT Impairments Pain,Strength,Balance, Functional Cognition, Functional Mobility,Grooming, Dressing,Toileting,Bathing, Toilet Transfers,Shower Transfers,Activity Tolerance Progress Towards Goals Slow Progress due to Pain,Slow Progress due to Medical Issues,Slow Progress due to Activity Tolerance,Slow Progress due to Cognition Assessment Summary Pt MOD complexity and main barriers are pain, decreased balance, strength, activity tolerance, and has difficulty to recall and incorporate her hip precautions. Pt now has to follow anterior and posterior precautions. Pt will greatly benefit from skilled rehab to continuously training to be able to incorporate all her hip precautions for ADL and mobility. Goals Self-Feeding Goal Independent Grooming Goal Independent Dressing Goal Moderate Assistance Toileting Goal Minimal Assistance Bathing Goal Moderate Assistance Toilet Transfer Goal Standby Assistance Shower Transfer Goal Minimal Assistance Days to Meet Goals 20 Frequency of Treatment Frequency Of Treatment Once a Day Treatment Plan OT Treatment Plan ADL Training,Patient/Family Education,Discharge Planning Other Treatment Recommendations and Next Go over hip precautions for Treatment Focus all ADL and mobility needs. Discharge Recommendations OT Discharge Recommendations SNF Rehab Transportation Needs at Discharge Wheelchair/Cabulance,Stretcher /Ambulance
[2023-10-09] MEDS: LACTATED RINGERS 1,000 ML 1000 ML IV (18:20)
[2023-10-09] MEDS: LATANOPROST 0.005% OPHTH 2.5 ML 1 DROPS EYE-BOTH (21:18)
[2023-10-09] MEDS: DOCUSATE 100 MG CAPSULE PO (21:20)
[2023-10-09] MEDS: BENZOCAINE/MENTHOL 1 LOZ PKT 1 EACH PO (21:20)
[2023-10-09] MEDS: ASPIRIN EC 81 MG TABLET PO (21:20)
[2023-10-10] VITALS (11 sets, daily range): BP systolic 91–135; BP diastolic 42–63; PULSE 85–102; RESP 14–18; TEMP 35.9–37; O2SAT 95–98
[2023-10-10] MEDS: CEFAZOLIN 2 GM/100 ML PREMIX 100 ML IV (00:10)
[2023-10-10] MEDS: ACETAMINOPHEN 325 MG TABLET 650 MG PO ×3 (01:38→22:34)
[2023-10-10] MEDS: IBUPROFEN 600 MG TABLET PO ×2 (01:38→16:49)
[2023-10-10 06:38] LABS: Hematocrit 17.5 % (36-46)
--- NOTE | 2023-10-10 09:00 | P.PN_ITS ---
Subjective Subjective Interval history: Genevieve is a pleasant 88-year-old female is postop day #1 s/p revision of acetabular component of left total hip arthroplasty with conversion to dual mobility articulation through an anterior approach by Dr. Ford. This morning patient reports she is feeling fairly good, much better than yesterday. She reports she felt lightheaded yesterday but has not felt lightheaded yet today, although she has not stood up and worked with PT either today. Her pain is mild-moderate and well controlled with her oral pain medication regimen, pain as a 2 at rest and a 4 with movement/standing. Patient was very hypotensive yesterday postoperatively likely due to intraop blood loss, she was given albumin yesterday post-op and she is receiving PRBC now. Most recent H&H 6 and 17.5, BP 124/63. Patient lives alone at home and has limited support in the area and so will likely require d/c to SNF for rehab, she said she will have a friend who is willing to stay w/ her once she is d/c from SNF w/ improved mobility for additional support as needed. Denies fever, chills, chest pain, SOB, nausea, vomiting. Exam Vital Signs (past 8 hours): - 10/10/23 03:00 10/10/23 05:30 10/10/23 08:00 Temperature 98.6 F 97.0 F L Pulse Rate 96 H 99 H 97 H Respiratory Rate 18 16 Blood Pressure 103/44 L 102/49 L 104/47 L Pulse Oximetry 95 98 Oxygen Flow Rate 0 10/10/23 08:32 Temperature 97 F L Pulse Rate 92 H Respiratory Rate 18 Blood Pressure 124/63 Pulse Oximetry Oxygen Flow Rate Oxygen Delivery Method Room Air Oxygen Flow Rate 0 Narrative Exam Narrative: Lying comfortably in bed with PRBC infusion running during our interview today. She is wearing her hip abduction brace. No acute distress. Post surgical Aquacel dressing intact, clean, dry without any drainage. SCDs on and functioning. 5/5 strength with EHL, DF, PF. Gross sensation intact to light touch throughout bilateral lower extremities. Calves soft and non-tender bilaterally. Resp Effort & Inspection: normal respiratory effort and able to speak in complete sentences Cardio Rate: regular rate Other: Extremities appear well perfused. Neuro General: patient alert, patient awake and patient oriented x3 Objective Labs 10/10/23 05:44 Labs: Laboratory Results - last 24 hr 10/09/23 10/09/23 10/10/23 12:10 12:15 05:44 WBC 7.0 RBC 2.79 L Hgb 8.7 L 6.0 L* Hct 25.8 L 17.5 L* MCV 92.2 MCH 31.1 MCHC 33.7 RDW 13.4 Plt Count 164 Neut % (Auto) 84.6 H Lymph % (Auto) 9.7 L Harvey % (Auto) 5.4 Eos % (Auto) 0.1 L Baso % (Auto) 0.2 Neut # (Auto) 5900 Lymph # (Auto) 700 L Harvey # (Auto) 400 Eos # (Auto) 0 Baso # (Auto) 0 Blood Type O Negative Antibody Screen Negative Crossmatch See Detail [facility] Medical History Memory changes Depression History of revision of total replacement of left hip joint (2006) Hearing impaired Glaucoma Recurrent dislocation, left hip Gait instability Overactive bladder Surgical History Hx of tubal ligation Hx of appendectomy Hx of tonsillectomy History of hysterectomy Hx of hernia repair (2015) Hx of bilateral cataract extraction History of total right hip replacement (2002) History of total left hip replacement Hx of laminectomy (1986) History of surgery (09/13/23) Social History household members: none Smoking Status: Never smoker alcohol intake: current Assessment & Plan Post-op Postoperative Procedures: Procedures Operation Date: 10/09/23 07:45 Actual Procedure Side Surgeon p acetabular component exchange of total hip arthroplasty for recurrent dislocation Left William Ford MD Postoperative day: 1 Postoperative plan narrative: 1) Plan to d/c to SNF due to limited support at home. She would also like PT once returning home from SNF. 2) Continue multimodal pain management with ice to the hip for additional pain control. ASA b.i.d. for DVT prophylaxis, SCDs to be on and functioning while patient is in bed. 3) Will continue to monitor blood pressure and H&H. Currently getting 1 unit PRBC on 10/10/23. 4) Continue working with PT to improve strength and mobility as tolerated. Patient is to maintain anterior and posterior hip precautions x6 weeks. Wear hip abduction brace 4-8 weeks. 5) 2 week prescription of cefadroxil 500 mg twice per day for PJI prophylaxis upon d/c. Intra-op tissue cultures were sent, still awaiting final result but they are expected to be negative. 6) Keep dressing intact, clean, dry until 2 week postop appointment. No soaking the incision site in pools or tubs. No topical ointments or creams to the incision site. 7) Follow up at [facility] orthopedics in 2 weeks for a postop appointment and wound check. All patient's questions were answered, she demonstrates understanding and is in agreement with the plan. Call our office if any questions or concerns arise. Quality VTE Deep Vein Thrombosis/Pulmonary Embolism Present on Admission: No
--- NOTE | 2023-10-10 09:10 | PT-IP ANOTE ---
EMR reviewed. pt has Hgb: 6 and Hct 17.5. PT hold at this time. pt receiving transfusion and per nurse will be receiving 2 units. will f/u.
[2023-10-10] MEDS: ASPIRIN EC 81 MG TABLET PO ×2 (10:31→22:34)
[2023-10-10] MEDS: cephALEXin 250 MG CAPSULE 500 MG PO ×2 (10:31→22:34)
[2023-10-10] MEDS: DOCUSATE 100 MG CAPSULE PO ×2 (10:31→22:35)
--- NOTE | 2023-10-10 12:15 | CM.DANOTE ---
Addendum entered by ALVA Webb 10/10/23 14:15: ADD: Return call from September at [facility] and confirms they can accept pt at discharge pending bed availability. CAL received VM from [facility] ([phone]) confirming that pt has been auth'd for SNF with auth#[id number]. BF Original Note: Patient is an 88 yo female who was admitted INPT Status on 10/09/23 for LTHA. Pt has [facility] for insurance and her PCP is Dr. Mikhail Jung. EMR was reviewed. Per Ortho, pt tolerated procedure well but H&H dropped and getting a unit of blood today and not yet medically stable to discharge and likely will need SNF. Per PT/OT, recommending SNF at d/c. SW met bedside with pt and explained role and she confirms she lives at home in [facility] at baseline. Recently moved here from [place] after her . Pt has a walker/wheelchair/shower chair at home. Drives. AVNI lives in same building but is not around consistently due to her (pt's brother) recently having kidney surgery in [place] and having to stay there to be close to his doctor and now in [place] for a couple weeks. 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 Pt confirms she has No hx of SNF or HH and was recently admitted for dislocation last month August 2023 and discharged home with new referral to [facility] but sounds as if [facility] did not start as pt had planned hip surgery coming up. AVNI working on hiring her in home CG for pt in the short term while she calls/gets set up with different PP CG agencies. Pt also confirms currently she has a economic research analyst and speech therapy assistant that can help and pt would be agreeable to hiring additional CG if needed after SNF. CAL provided SNF Choice list and discussed need for [facility] contracted facility and pt confirms first preference is [facility] but aware they will need to review and pt agreeable with additional SNF referrals as backup in [facility]. CAL called [facility] and w/e CM is at [phone] (unclear on name of ) and updated [facility] on need for SNF auth and faxed clinicals to review to requested regular fax [phone]. CAL called [facility] and made new referral and then sent referral to [facility] and [facility] as backups. PASRR completed. Plan: to follow closely for [facility] review for SNF auth and [facility] to review to see if they can accept. ALVA Webb Discharge Planning/Care Management CM Discharge Assessment Start: 10/07/23 14:48 Freq: Status: Active Protocol: Document 10/08/23 12:46 DPL (Rec: 10/08/23 12:48 DPL [id number]) Discharge Planning Assessment Assigned Manifest Clerk ALVA Curtis Advance Directives? No History Provided By Patient,Medical Record Has Patient been admitted in last 30 Yes days? Comment 10/05-10/06 same issues Household Members children Type of transporation used prior to Drives own vehicle admit Independent with ADL's Yes Is patient alert and oriented? Yes Caregiver for Another Yes: children Comment N/A Comment No identified home d/c needs at this time. Barriers to Discharge No Discharge Plan Home Referrals Initiated None needed Review Status In Process Please Provide Date Initial DC 10/08/23 Assessment Was Performed Document 10/10/23 11:18 BF (Rec: 10/10/23 11:20 BF [id number]) Discharge Planning Assessment Assigned Manifest Clerk ALVA Campbell Advance Directives? No Advance Directives on File No History Provided By Patient,Medical Record Has Patient been admitted in last 30 Yes days? Comment 10/05-10/06 same issues Prior Living Arrangements House Household Members family Comment AVNI lives upstairs but currently in [place] Type of transporation used prior to Drives own vehicle admit Independent with ADL's Yes Is patient alert and oriented? Yes Caregiver for Another No Comment N/A DME Already Rented / Owned FWW / Walker,Cane Patient/Family Preference Alf Facility Barriers to Discharge No Discharge Plan Alf Facility Transportation Arrangement Likely SNF cabulance Referrals Initiated Alf If patient plan is SNF: Has PASSR been Yes completed? Medicare Choice List Provided Yes Medicare choice list reviewed on patient electronic tablet with SNF/HH Preference 1) [facility] Has Agency SNF been contacted Yes Whiteboard Updated in Patient Room with Yes name and ext. # of Manifest Clerk Review Status In Process Please Provide Date Initial DC 10/10/23 Assessment Was Performed Next Review Type Continued Stay Review Initialized on 10/10/23 11:20 - END OF NOTE Discharge Planning/Care Management Advanced directive, confirm from FAMILY Start: 10/09/23 15:06 Freq: Q24H Status: Active Protocol: Document 10/09/23 15:06 EJ (Rec: 10/09/23 18:32 EJ [id number]) Advance Directive, confirm on record Time 15:30 Person contacted Genevieve Gandara Copy received No Pre-Anesthesia Assessment Start: 09/29/23 12:48 Freq: Status: Active Protocol: Document 09/29/23 12:48 CAB (Rec: 09/29/23 13:24 CAB [id number]) Pre-Anesthesia Assessment Patient Information Reviewed Via Phone Assessment Assessment Completed With Patient Diagnostic Results BMP/CMP,CBC,EKG Comment Labs/EKG @ [facility] 09/17/23 Primary Care Provider Mikhail Jung Seen Specialist in Last 12 Months Yes Specialist Seen Opthamologist/Gluing Pressman, Orthopedist Primary Language Portuguese Preferred Language Portuguese Wirer Required No Height 172.72 cm Weight 70.76 kg Body Mass Index (BMI) 23.7 Hearing Ability Hearing Impaired,Use of Hearing Aid Visual Assist Glasses Dentition Type Partial- Upper & Lower Barriers to Learning Memory Hx Anesthesia Reactions No Hx Family Anesthesia Reaction No Hx Malignant Hyperthermia No Hx Blood Transfusions No Hx Blood Transfusion Reaction No Anesthesia Review Requested No Security Orderly No alcohol intake current alcohol intake frequency holidays/special occasions only Smoking Status Never smoker Substance Use Type does not use Pain Present Pain Reported Musculoskeletal Symptoms Difficulty Walking,Joint Pain, Numbness History of Falling (Recent or History of Yes ) Patient is completely paralyzed or No completely immobile Prosthesis or Orthotic Device Front Wheel Walker Mental Status Oriented to own ability Comment Balance issues Is patient on oxygen? No Does patient have SAN/SOB No Hx Sleep Apnea No Currently Taking a Beta Andrzej No Hx Chest Pain No Hx SOB No Hx Syncope or Dizziness No Anti-Coagulant Therapy No Has a Float Builder No Cardiac Testing No Hx Pacemaker/ICD No Pacemaker Rep Required? No Cardiac Clearance Received No Diet Type At Home Regular Dysphagia No Gastrointestinal Symptoms None Bladder Pattern Incontinent Urinary Catheter Present No Hx Urinary Self Catheterization No Diabetes No Patient No Lactating No Hx Drug Resistant Organism No Presence of External or Internal Medical Yes Devices Received a COVID vaccine? Yes Received all doses? No Marital Status / Lives With none Current Living Arrangements Apartment/Condo Number of Floors (Floors) One Floor Support System None Does the Patient Have Assistance After No Surgery Patient Discharge Plan Description Alf Facility/Rehab Comment Pt wants to DC to SNF and then hire in assistance when home Feels Safe in Current Environment Yes Been Physically Hurt or Threatened By a No Person in Current Environment Do you have thoughts of harming yourself None or others? Are you currently considering suicide? No Do you have a plan to hurt yourself or No Plan others? Do You Have Any Spiritual Beliefs That No May Affect Your HC Choices? Do You Have Any Cultural Practices That No May Affect Your HC Choices? Who Can We Speak to About Patient's Care Family, friends Identifying Code for Release of Patient Declines to issue Information Health Care Proxy/Next of Kin Rosemary Lopez (sister in law) Health Care Proxy Emergency Contact Name Rosemary Lopez (sister in law) Emergency Contact Advance Directives? Yes: Pt declines to bring in copies Advance Directives on File No Requested Patient Bring Advanced Yes Directives DOS Power of Casey Saw Operator Yes Power of Casey Saw Operator Name Rosemary Lopez (sister in law) Power of Casey Saw Operator PAC Instructions Do not shave/clip surgical site,Durable medical equipment ,Medications to take/avoid, Nasal antibiotic,No ETOH/ petroleum product on skin DOS, NPO,Pre-surgical wash,Sensory aids,Sturdy shoes/comfortable clothes,Do not bring valuables and remove jewelry
--- NOTE | 2023-10-10 12:22 | PC.NURSE ---
Pt received first unit PRBC's this morning. Pt tolerated w/o incidence. To recieve second unit today. Call light w/in reach, pt calls appropriately for needs. Continue w/plan of care.
--- NOTE | 2023-10-10 13:45 | PT-IP ANOTE ---
checked on pt and informed pt that she is on hold for PT today due to blood transfusion. pt understood. pt continues to be on hold this afternoon. pt just starting with her 2nd unit of blood transfusion. will f/u.
[2023-10-10 17:35] LABS: Hematocrit 27.3 % (36-46); Hemoglobin 9.3 g/dL (12.0-16.0)
[2023-10-10] MEDS: LATANOPROST 0.005% OPHTH 2.5 ML 1 DROPS EYE-BOTH (22:35)
[2023-10-10] MEDS: SODIUM CHLORIDE 0.9% FLUSH 10 ML IV (22:38)
[2023-10-11 03:42] VITALS: BP 115/58; PULSE 79; RESP 18; TEMP 36.6; O2SAT 95
[2023-10-11 09:00] VITALS: BP 117/58; PULSE 94; RESP 16; TEMP 36.4; O2SAT 99
[2023-10-11] MEDS: IBUPROFEN 600 MG TABLET PO ×3 (09:04→18:31)
[2023-10-11] MEDS: ACETAMINOPHEN 325 MG TABLET 650 MG PO ×3 (09:05→18:32)
[2023-10-11] MEDS: DOCUSATE 100 MG CAPSULE PO ×2 (09:05→21:36)
[2023-10-11] MEDS: ASPIRIN EC 81 MG TABLET PO ×2 (09:05→21:36)
[2023-10-11] MEDS: cephALEXin 250 MG CAPSULE 500 MG PO ×2 (09:16→21:36)
[2023-10-11] MEDS: SODIUM CHLORIDE 0.9% FLUSH 10 ML IV ×2 (09:31→21:38)
--- NOTE | 2023-10-11 11:02 | PT.IPTN ---
Addendum entered and electronically signed by Vanessa Stephens PT 10/11/23 11:06: PT provides direct supervision during SPT treatment Original Note: Current Diagnoses Unspecified dislocation of left hip, initial encounter (10/09/23) Surgery Performed Operation Date: 10/09/23 07:45 Actual Procedures p acetabular component exchange of total hip arthroplasty for recurrent dislocation(Left) - William Ford MD Physical Therapy Treatment Note M2 PT-IP Current Condition Start: 10/09/23 18:17 Freq: NEEDED Status: Active Protocol: Document 10/09/23 16:20 AB (Rec: 10/09/23 18:38 AB [id number]) Physical Therapy Current Condition Current Condition Evaluation Date 10/09/23 Treatment Diagnosis s/p L JULIANNE revision; difficulty in walking Onset Date 10/09/23 M3 PT-IP Subjective Start: 10/09/23 18:17 Freq: NEEDED Status: Active Protocol: Document 10/11/23 08:55 JG (Rec: 10/11/23 09:44 JG [id number]) Subjective Physical Therapy Visit Type Type Treatment Note Visit Start Time 08:55 Visit Stop Time 09:35 Number of PROJECT CONTROLS SCHEDULER Visits 0 Physical Therapy Visit Comments Patient Comments Pt was excited to get out of bed and agreeable to PT today. Pt complained of her abduction brace being too loose prior to exercise Therapy Pain Assessment Pain When Pain Assessed At Rest Pain Present Pain Present Pain Reported Location Left Hip Intensity 2 Scale Used Numeric (0 - 10) Pain Management Techniques Distraction,Re-positioning M4 PT-IP Mobility and Gait Start: 10/09/23 18:17 Freq: NEEDED Status: Active Protocol: Document 10/11/23 08:55 JG (Rec: 10/11/23 09:44 JG [id number]) PT-Bed Mobility Assessment Supine to Sit Supine to Sit Moderate Assistance,2 Person Assistance,Head of Bed Elevated,Bedrails Scooting Scooting to Edge of Bed Minimal Assistance PT-Transfer Assessment Sit to and From Stand Sit to and from Stand Moderate Assistance,Maximum Assistance,1 Person Assistance ,2 Person Assistance,Use of Upper Extremities Equipment Transfer Assistive Device Gait Belt,Front Wheeled Walker Orthotic/Prosthetic Devices or Brace: Yes Transfers Transfer Destination Chair Transfer Technique Stand Step Pivot Transfer Ability Level of Assist Maximum Assistance,2 Person Assistance,Use of Upper Extremities Comments Mobility Comments Pt mod assistance with bed mobility from supine to EOB. Pt reaches for DEAF TEACHER hand as SPT supports left leg and provides cues. She requires less assistance to stand than to sit and d/t likely orthostasis, poor command following and LLE buckling, third person must scoot chair up behind her to sit safely. Orthostatic BP with taken with small cuff and she likely need larger one in LUE: Supine ; 146/62, 94, seated; 146/69, 104, Standing; 137/76, 114, seated in chair 2 attempts; 124/68, 104. Gait Assessment Comments Gait Comments Pt is unable to step d/t buckling, confusion and orthostasis PT-Balance Assessment Sitting Balance and Reactions Static Sitting Balance Ability Fair Dynamic Sitting Balance Ability Fair Standing Balance and Reactions Static Standing Balance Ability Poor Dynamic Standing Balance Ability Poor Device Used FWW M5 PT-IP Objective Assessments Start: 10/09/23 18:17 Freq: NEEDED Status: Active Protocol: Document 10/09/23 16:20 AB (Rec: 10/09/23 18:38 AB [id number]) Orientation Orientation/Cognition Level of Alertness Alert Orientation Name,Place,Situation Language Function Ability Hard of Hearing Safety Awareness Decreased Safety Awareness Memory Description Short Term Impaired,Second Miller Impaired Gross Range of Motion Lower Extremity ROM Assessment Within Functional Limits Strength Lower Extremity Strength Assessment Left Impaired Hip 3+/5 Knee 3+/5 Muscle Tone Muscle Tone WNL Yes M6 PT-IP Treatment Start: 10/09/23 18:17 Freq: NEEDED Status: Active Protocol: Document 10/11/23 08:55 JG (Rec: 10/11/23 09:44 J [id number]) Physical Therapy Treatment Exercises Exercises Ankle Pumps,Gluteal Sets, Straight Leg Raises Education Education Provided Precautions,Safety Other Treatments Other Treatment Performed Pt recalls no hip precautions M7 PT-IP Assessment and Plan Start: 10/09/23 18:17 Freq: NEEDED Status: Active Protocol: Document 10/11/23 08:55 JG (Rec: 10/11/23 09:44 JG [id number]) PT Summary Assessment and Plan Potential Rehabilitation Potential Fair Status of Condition at Evaluation Evolving Summary Impairments Pain,ROM,Strength,Balance, Coordination,Cognition,Bed Mobility,Transfers,Gait, Activity Tolerance Progress Towards Goals Slow Progress due to Activity Tolerance,Slow Progress - Other Assessment Summary Pt supine in bed with legs slightly elevated upon PT arrival. Pt does not recall hip precautions. Pt is orthostatic and demonstrates LLE buckling. Poor coordination of other extremities and decreased command following do not allow safe compensation for transfer and stepping with walker. During transfer, pt's face was flush and became sweaty and she c/o dizziness. Slow progress with PT. Goals Bed Mobility Goal Independent Transfer Goal Minimal Assistance,Front Wheeled Walker Gait Goal Contact Guard Assistance,Front Wheel Walker Gait Distance 50 Other Goals improve bed mobility, transfers, ambulation using FWW SBA ~ 150 ft Days to Meet Goals 10 Frequency of Treatment Frequency Of Treatment Once a Day Treatment Plan Physical Therapy Treatment Plan Bed Mobility Training,Transfer Training,Gait Training, Therapeutic Exercise,Balance Retraining,Post Op Education, Discharge Planning,Hot or Cold Pack,Neuromuscular Re-ed, Coordination Retraining,Manual Therapy Other Recommendations and Next Treatment Focus on WB tolerance, Focus transfers and therapeutic exercise recall. Precautions Posterior Hip Precautions No Hip Flexion > 90 degrees,No Hip Internal Rotation,No Hip Adduction Anterior Hip Precautions No Hip Extension,No Hip External Rotation Other Precautions Note, brace set in limit of 70 deg flexion Weight Bearing Status Weight Bearing Status Weight Bear as Tolerated Recommendations To Nursing Amount of Assist Needed Mechanical Lift Discharge Recommendations PT Discharge Recommendations SNF Rehab Transportation Needs at Discharge Wheelchair/Cabulance,Stretcher /Ambulance
--- NOTE | 2023-10-11 11:21 | CM.DPC ---
DCP Cont. Reviewed EMR and team rounds for status updates. Pt continues to have low H&H today, although she is improving. Likely will be ready for d/c to [facility] tomorrow. Call [facility] in the AM once pt's d/c has been confirmed in order to arrange transport time.
--- NOTE | 2023-10-11 11:24 | P.PN_ITS ---
Subjective Subjective Interval history: She notes she is pretty lightheaded when she gets up out of bed. She is up sitting in a chair. She does note some hip pain it has not severe. She does not have nausea. She does not have a prior cardiac or respiratory history. She did require assistance to stand. Exam Vital Signs (past 8 hours): - 10/11/23 03:42 10/11/23 09:00 Temperature 97.9 F 97.5 F L Pulse Rate 79 94 H Respiratory Rate 18 16 Blood Pressure 115/58 L 117/58 L Pulse Oximetry 95 99 Oxygen Flow Rate 0 Oxygen Delivery Method Room Air Oxygen Flow Rate 0 Narrative Exam Narrative: She is resting comfortably in the chair she is alert she is oriented her dressings dry. She has a hip abduction brace in place. She is able to fire toe flexors and extensors calves soft bilaterally Objective Labs 10/10/23 17:30 Labs: Laboratory Results - last 24 hr 10/09/23 10/10/23 12:10 17:30 Hgb 9.3 L Hct 27.3 L Blood Type O Negative Antibody Screen Negative Crossmatch See Detail [facility] Medical History (Updated 10/11/23 @ 11:26 by Jerrica Calloway MD) Memory changes Depression History of revision of total replacement of left hip joint (2006) Hearing impaired Glaucoma Recurrent dislocation, left hip Gait instability Overactive bladder Surgical History Hx of tubal ligation Hx of appendectomy Hx of tonsillectomy History of hysterectomy Hx of hernia repair (2015) Hx of bilateral cataract extraction History of total right hip replacement (2002) History of total left hip replacement Hx of laminectomy (1986) History of surgery (09/13/23) Social History household members: family and none Smoking Status: Never smoker alcohol intake: current Assessment & Plan Post-op Assessment and plan (1) Acute blood loss anemia: Assessment and Plan narrative: She continues to have symptomatic anemia. I have recommended we repeat her CBC. If she is persistently significantly low she may require an additional unit of packed RBCs. She has been transitioned out of bed to a chair in his resting comfortably. She clearly will require fpc facility for rehab. Postoperative Procedures: Procedures Operation Date: 10/09/23 07:45 Actual Procedure Side Surgeon p acetabular component exchange of total hip arthroplasty for recurrent dislocation Left William Ford MD Postoperative day: 2 Postoperative status: anemia Postoperative status narrative: Making progress postoperatively. Continues with symptomatic anemia. Plan is to recheck her CBC and possible give additional blood. Quality VTE Deep Vein Thrombosis/Pulmonary Embolism Present on Admission: No
[2023-10-11 12:00] VITALS: BP 92/48; PULSE 97; RESP 16; TEMP 36.3; O2SAT 98
[2023-10-11 13:59] LABS: Add Manual Diff / Slide Review NO; Basophils Absolute Auto 0 /uL (0-100); Basophils Percent Auto 0.2 % (0-2); Eosinophils Absolute Auto 0 /uL (0-450); Eosinophils Percent Auto 0.2 % (2-4); Hematocrit 28.1 % (36-46); Hemoglobin 9.7 g/dL (12.0-16.0); Lymphocytes Absolute Auto 1000 /uL (1100-4500); Lymphocytes Percent Auto 10.2 % (25-40); Mean Corpuscular HGB Conc 34.4 % (30-36); Mean Corpuscular Volume 89.9 fL (80-100); Monocytes Absolute Auto 1300 /uL (0-900); Monocytes Percent Auto 12.6 % (3-14); Neutrophils Absolute Auto 7700 /uL (1500-7000); Neutrophils Percent Auto 76.8 % (50-75); Platelet Count 86 X10^3/uL (150-400); Red Blood Cell Count 3.12 X10^6/uL (4.0-5.2); Red Cell Distribution Width 14.4 % (11.6-14.8)
[2023-10-11 16:00] VITALS: BP 100/68; PULSE 90; RESP 16; TEMP 36.2; O2SAT 98
[2023-10-11 20:30] VITALS: BP 122/56; PULSE 95; RESP 18; TEMP 36.1; O2SAT 96
[2023-10-11] MEDS: LATANOPROST 0.005% OPHTH 2.5 ML 1 DROPS EYE-BOTH (21:37)
[2023-10-12] MEDS: ACETAMINOPHEN 325 MG TABLET 650 MG PO ×2 (01:07→08:34)
[2023-10-12] MEDS: IBUPROFEN 600 MG TABLET PO ×2 (01:07→08:33)
[2023-10-12 02:24] VITALS: BP 130/61; PULSE 95; RESP 18; TEMP 36.6; O2SAT 95
--- NOTE | 2023-10-12 07:40 | P.DS_ITS ---
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 Post-op diagnosis: same Procedure & Clinicians Procedure: Revision of acetabular component of left total hip arthroplasty with conversion to dual mobility articulation through an anterior approach Same procedure as scheduled: Yes Surgeon: William Ford Material Liaison: Hollie Butler Anesthesia Type: Spinal, Sedation and Local Operative Notes Estimated Blood Loss (mL): 800 Procedure in detail: Revision acetabular component of left total hip arthroplasty with conversion to dual mobility articulation and retention of femoral stem through direct anterior approach: Implants: * Powers revision multi hole Gription size 58 cup?with 4 screws * 58/49 pinnacle modular dual mobility liner * Retained S-ROM femoral stem * 28 mm +5 Biolox ceramic femoral head on 03/09 taper * 49/28 Bimentum Altrx liner Discharge Providers Provider Date of admission: 10/09/23 06:01 Discharge Date: 10/12/23 Primary care physician: Mikhail Jung DO Consults: 10/09/23 06:00 Consult to Anesthesiology Routine Comment: Consulting Provider: Anesthesiologist Reason for consultation: Regional block for post operative pain control Has provider been notified: No 10/09/23 13:27 Consult to Discharge Planning Routine Comment: Consult to Occupational Therapy Evaluate & Treat Comment: Physician Instructions: Evaluate and treat Consult to Physical Therapy Evaluate & Treat Comment: Physician Instructions: post op JULIANNE protocol Discharge provider: Aura Burnett PA-C Summary Hospital Course Discharge Diagnosis: 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 She required transfusion of PRBCs on POD# 1. Her H/H responded appropriately and on the morning of POD# 3 it was continuing to trend upwards. She denied any further dizziness. She had done very little work w/ PT during her stay and the plan is discharge to SNF for further rehab prior to going home. She was eating and voiding without difficulty and her pain was well-controlled w/ OTC meds only. Exam Vital Signs (past 8 hours): - 10/12/23 02:24 Temperature 97.9 F Pulse Rate 95 H Respiratory Rate 18 Blood Pressure 130/61 Pulse Oximetry 95 Oxygen Flow Rate 0 Oxygen Delivery Method Room Air Oxygen Flow Rate 0 Narrative Exam Narrative: 4/5 strength in hip flexors, quadriceps, hamstrings; 5/5 DF, PF, EHL on left. Sensation to light touch intact throughout LLE; calf soft and compressible. Aquacel dressing CDI; hip brace in place. Objective Labs 10/11/23 13:35 Labs: Laboratory Results - last 24 hr 10/11/23 13:35 WBC 10.0 RBC 3.12 L Hgb 9.7 L Hct 28.1 L MCV 89.9 MCH 31.0 MCHC 34.4 RDW 14.4 Plt Count 86 L Neut % (Auto) 76.8 H Lymph % (Auto) 10.2 L [place] % (Auto) 12.6 Eos % (Auto) 0.2 L Baso % (Auto) 0.2 Neut # (Auto) 7700 H Lymph # (Auto) 1000 L [place] # (Auto) 1300 H Eos # (Auto) 0 Baso # (Auto) 0 PFSH Medical History (Updated 10/11/23 @ 11:26 by Jerrica Calloway MD) Memory changes Depression History of revision of total replacement of left hip joint (2006) Hearing impaired Glaucoma Recurrent dislocation, left hip Gait instability Overactive bladder Surgical History (Updated 10/12/23 @ 07:48 by Aura Burnett PA-C) Hx of tubal ligation Hx of appendectomy Hx of tonsillectomy History of hysterectomy Hx of hernia repair (2015) Hx of bilateral cataract extraction History of total right hip replacement (2002) History of total left hip replacement Hx of laminectomy (1986) History of surgery (09/13/23) Social History household members: family and none Smoking Status: Never smoker alcohol intake: current Discharge Assessment & Plan Assessment and Plan Assessment: 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 Discharge Plan Discharge Plan Patient Disposition: SNF Transfer to: [facility] Discharge orders & Medications Prescriptions: New aspirin 81 mg Tablet,Delayed Release (Dr/Ec) 81 mg PO BID Qty: 60 0RF docusate sodium 100 mg Capsule 100 mg PO BID Qty: 60 1RF ferrous sulfate 325 mg (65 mg iron) Tablet 325 mg PO DAILY Qty: 30 1RF ascorbic acid (vitamin C) [Vitamin C] 500 mg Tablet 500 mg PO DAILY Qty: 30 1RF cephalexin 250 mg Capsule 500 mg PO BID Qty: 24 0RF tramadol 50 mg tablet 50 mg PO Q6H PRN (Reason: pain (scale score 4-6)) Qty: 30 0RF Continued timolol maleate 0.5 % drops 1 drp EYE-BOTH QAM latanoprost 0.005 % drops 1 drp EYE-BOTH QPM acetaminophen [Tylenol Extra Strength] 500 mg tablet 500 mg PO TID trospium 20 mg tablet 20 mg PO BID Qty: 180 3RF Rx Instructions: administer on an empty stomach Discontinued aspirin [Adult Low Dose Aspirin] 81 mg tablet,delayed release (DR/EC) 81 mg PO DAILY Follow up/Referrals: Mikhail Jung DO [Primary Care Provider] - William Ford MD [Physician] - (Follow up at [facility] as scheduled in 2 weeks. ) Diet/Activity/Treatments Diet: Diet as Tolerated Activity: Weightbearing as tolerated, maintain anterior and posterior hip precautions. Walker at all times when ambulating. Hip abduction brace at all times when in bed for 8 weeks. Cold/Heat Therapy: Ice to the hip for additional pain control Skin/Wound/Dressing Care Report to your healthcare provider any signs of infection, such as:: chills, fever, night sweats, unusual drainage and unusual redness Dressing: Keep dressing intact, clean and dry until 2 week post-op appointment. No soaking the incision site in pools or tubs. No topical ointments or creams to the incision site. Special Rehabilitation Services Reason for rehabilitation: Post-operative therapy Rehab type: Physical therapy and Occupational therapy Visit Report/Discharge Packet Instructions: DI for Hip Replacement, DI for Prescription Opioid Use Stand Alone Forms: Patient Portal/API, Surgery Discharge Discharge Data Primary Care Provider: Salari,Ali Quality VTE Deep Vein Thrombosis/Pulmonary Embolism Present on Admission: No
[2023-10-12] MEDS: polyethylene glycoL 3350 17 GM POWD.PACK PO (08:33)
[2023-10-12] MEDS: cephALEXin 250 MG CAPSULE 500 MG PO (08:33)
[2023-10-12] MEDS: FERROUS SULFATE 325 MG TABLET PO (08:34)
[2023-10-12] MEDS: ASCORBIC ACID 500 MG TABLET PO (08:34)
[2023-10-12] MEDS: DOCUSATE 100 MG CAPSULE PO (08:34)
[2023-10-12] MEDS: ASPIRIN EC 81 MG TABLET PO (08:34)
[2023-10-12] MEDS: OXYCODONE IR 5 MG TABLET PO (08:34)
[2023-10-12] MEDS: SODIUM CHLORIDE 0.9% FLUSH 10 ML IV (08:35)
--- NOTE | 2023-10-12 08:41 | CM.DPNOTE ---
Addendum entered by ALVA Granados 10/12/23 10:42: Per Darya at [facility], noticed depression diagnosis on chart, asked PASRR be amended. HPLC CHEMIST spoke wth Gali ([phone] and f [phone]) about level 1, Gali invalidated level 2. HPLC CHEMIST faxed her level 1. HPLC CHEMIST sent Darya updated PASRR and placed updated PASRR back in chart. -SL Original Note: DCP Note HPLC CHEMIST reviewed EMR. Per ortho team, pt medically cleared to dc to [facility] today. Per Darya at , able to take pt at 11am. CC Sheila emailed PASRR/med list/dc information to Darya. HPLC CHEMIST updated buffer copper/RN with dc time and RN with nursing report number. HPLC CHEMIST updated pt in room. Pt in agreement, excited for acceptance here to be closer to home. P: pt to dc today at 11am to [facility]. CM team will continue to follow closely for any additional CM needs. ALVA Granados
[2023-10-12 09:34] VITALS: BP 117/62; PULSE 86; RESP 16; TEMP 37.1; O2SAT 95
--- NOTE | 2023-10-12 12:14 | PC.NURSE ---
Transfer: Pt ready for transfer. Report called to [facility] admitting nurse. Reviewed hospital course. Pt received 2 units of blood after surgery. H/H checked for several days and has remained steady. She has a hip abductor brace on, it is set at 70 degrees of flexion and 0 (zero) degrees of extention. She is to wear it at all times. She is on ant/post precautions both. No bm, usually takes miralax daily and this was accidently omitted. She did get a dose today. Questions answered. Pt transfered to facility using there van.
== END 2023-10-12 11:15 | DRG 467 ==
PROVIDERS: Nurse Anesthetist, Certified Registered; Orthopaedic Surgery; Physician Assistant Surgical; Admitting Provider Orthopaedic Surgery Adult Reconstructive Orthopaedic Surgery; PCP Family Medicine; Referring Provider Orthopaedic Surgery Adult Reconstructive Orthopaedic Surgery; Visit Provider Orthopaedic Surgery Adult Reconstructive Orthopaedic Surgery
PROC: 0SRB04A Replacement of Left Hip Joint with Ceramic on Polyethylene Synthetic Substitute, Uncemented, Open Approach (ICD-10-PCS; CPT 27130; principal; 2023-10-09 07:45)
DX: T84.021A Dislocation of internal left hip prosthesis, initial encounter (principal); D62 Acute posthemorrhagic anemia; Y79.2 Prosthetic and other implants, materials and accessory orthopedic devices associated with adverse incidents
CPT/HCPCS: 36415; 36430; 73502; 76000; 85014; 85018; 85025; 86850; 86900; 86901; 87070; 87075; 87176; 87205; 97110; 97163; 97166; 97530; C1776; P9016; J0690; J1100; J2405; J2704; P9045

== ENCOUNTER → 2024-08-30 12:34 | Outpatient (CLI) | payer OTHER, SELFPAY ==
[2023-10-09 14:55] VITALS: BMI 24.3
[2024-08-30 13:10] LABS: Hematocrit 39.1 % (36-46); Mean Corpuscular HGB Conc 33.2 % (30-36); Mean Corpuscular Hemoglobin 30.7 PG (26-34); Mean Corpuscular Volume 92.5 fL (80-100); Platelet Count 204 X10^3/uL (150-400); Red Blood Cell Count 4.23 X10^6/uL (4.0-5.2)
[2024-08-30 13:40] LABS: BUN Creatinine Ratio 22.9 (6-22); Blood Urea Nitrogen 22 mg/dL (7-17); Calcium 9.7 mg/dL (8.4-10.2); Carbon Dioxide 28 mmol/L (22-32); Chloride 103 mmol/L (98-107); Estimated Glomerular Filt Rate 57 mL/min (>60); Glucose 127 mg/dL (70-99); HEMOLYSIS < 15 (0-50); Potassium 4.2 mmol/L (3.4-5.1); Sodium 139 mmol/L (137-145)
== END ==
PROVIDERS: PCP Family Medicine; Referring Provider Family Medicine; Visit Provider Family Medicine
DX: D64.9 Anemia, unspecified (principal); Z00.00 Encounter for general adult medical examination without abnormal findings; I87.2 Venous insufficiency (chronic) (peripheral)
CPT/HCPCS: 36415; 80048; 85027

== ENCOUNTER 2025-01-06 08:15 | Outpatient (RCR) | payer OTHER, SELFPAY ==
[2023-10-09 14:55] VITALS: BMI 24.3
--- NOTE | 2024-11-17 12:42 | PT.OIE ---
Current Diagnoses Pain in right shoulder (11/17/24) Pain in left shoulder (11/17/24) Past Medical History (Last Updated 03/09/24 @ 13:49 by Mikhail Jung DO) Depression Encounter for subsequent annual wellness visit (AWV) in Medicare patient Gait instability Glaucoma Hearing impaired Memory changes Overactive bladder Recurrent dislocation, left hip Past Surgical History (Last Reviewed 10/09/23 @ 06:45 by Jocelyne Giraldo RN) History of hysterectomy History of revision of total replacement of left hip joint (2006) History of surgery (09/13/23) History of total left hip replacement History of total right hip replacement (2002) Hx of appendectomy Hx of bilateral cataract extraction Hx of hernia repair (2015) Hx of laminectomy (1986) Hx of tonsillectomy Hx of tubal ligation Visit Care Team Role Provider Type Mikhail Jung DO Attending Provider Physician Primary Care Provider Referring Provider Specialty: [facility] Address: [address] [place] [address], [facility] Email: [email or web address] Physical Therapy Initial Evaluation PT-OP-A Visit Information Start: 11/17/24 07:27 Freq: Status: Active Protocol: Document 11/17/24 07:28 BL (Rec: 11/17/24 07:44 BL Laptop) Out-Patient Physical Therapy Visit Information Visit Information Visit Type Initial Evaluation Visit Start Time 08:15 Visit Stop Time 08:55 Visit Number (1) 1/10 (PN by 12/18/24) Number of EMBROIDERY FINISHER Visits 0 Evaluation Information Evaluation Date 11/17/24 PT-OP-C Subjective Start: 11/17/24 07:27 Freq: Status: Active Protocol: Document 11/17/24 07:28 BL (Rec: 11/17/24 07:44 BL Laptop) OP-PT Subjective Patient Comments Patient Comments Pt presents to the clinic this date with concerns for bilateral shoulder pain that has been present for several months and progressively worsening. Reports the R> L. Pt is R handed. Pt unable to correlate any time of day or position that seems to bother her more but does report bringing her arms behind her or washing her hair. Pt reports she has noticed loss in ROM over the last couple of years. Pt reports her pain as a dull achy sensation that can be sharp if she pushes through this. Pt rates 4/10 on R and 3/10 on L. Pt states sleeping at night does not seem to bother her symptoms. States she has tried acetaminophen which helps along with Blue Emu. Patient Reported Same Progress Patient Questionnaires Quick Dash- Upper Extremity Quick Dash UE Score 45% disability PT-OP-H Neuro Start: 11/17/24 07:27 Freq: Status: Active Protocol: Document 11/17/24 07:28 BL (Rec: 11/17/24 07:44 BL Laptop) Sensation Evaluation Comments Summary Comments pt reports occasional numbness in R UE down to 3rd digit. Pt reports the tingling only last for a few hours and happens maybe a couple times a month Coordination Evaluation Comments Coordination pt denies changes in coordination. Comments PT-OP-J Posture/Palpation/Skin Start: 11/17/24 07:27 Freq: Status: Active Protocol: Document 11/17/24 07:28 BL (Rec: 11/17/24 07:44 BL Laptop) Posture Evaluation Comments Posture Comments pt demos forward head and protracted/rounded shoulders. PT-OP-K Range of Motion Start: 11/17/24 07:27 Freq: Status: Active Protocol: Document 11/17/24 07:28 BL (Rec: 11/17/24 07:44 BL Laptop) Cervical Spine Range of Motion Cervical Spine Active Percentage Testing Position Sitting Flexion 100 Extension 75 Rotation Left 75 Rotation Right 75 Lateral Flexion Left 75 Lateral Flexion 75 Right Shoulder Goniometric Range of Motion Shoulder Right Flexion 90 Abduction 80 External Rotation at 50 0 degrees Abduction Internal Rotation 70 left Shoulder ROM WFL No Flexion 95 Abduction 80 External Rotation at 50 0 degrees Abduction Internal Rotation 70 PT-OP-L Special Tests Start: 11/17/24 07:27 Freq: Status: Active Protocol: Document 11/17/24 07:28 BL (Rec: 11/17/24 07:44 BL Laptop) Special Tests Shoulder Special Tests Page Test Test Results negative Speed's Biceps Test Results negative [place] Arias Impingement Test Results positive Neer Impingement Test Results negative PT-OP-M Strength Start: 11/17/24 07:27 Freq: Status: Active Protocol: Document 11/17/24 07:28 BL (Rec: 07/24/25 07:44 BL Laptop) Shoulder Strength Shoulder Manual Muscle Testing Right Flexion 4 Good Extension 4+ Good+ Abduction (C5) 4 Good External Rotation 4 Good Internal Rotation 4 Good Left Flexion 4 Good Extension 4 Good Abduction (C5) 4 Good External Rotation 4- Good- Internal Rotation 4 Good PT-OP-Q Treatments Start: 11/17/24 07:27 Freq: Status: Active Protocol: Document 11/17/24 07:28 BL (Rec: 11/17/24 07:44 BL Laptop) Therapeutic Exercises Standing Exercises strength Standing Exercise claudia ER Name Resistance lvl 1 band Comments 2x10 Posture Standing Exercise Scap squeeze, chin tucks, shoulder rolls Name Comments 10x PT-OP-T Assessment and Plan Start: 11/17/24 07:27 Freq: Status: Active Protocol: Document 11/17/24 07:28 BL (Rec: 11/17/24 07:44 BL Laptop) Physical Therapy Assessment Rehab Potential Rehabilitation Good Potential Evaluation Complexity Number of Personal 1-2 Factors/ Comorbidities Number of Body 3 Systems Impaired Clinical Evolving Presentation at Evaluation Impairments Impairments Activity Tolerance,Coordination,Functional Activities, Functional Mobility,Pain,Posture,ROM,Soft Tissue Mobility,Strength,Transfers Goals Three Intermediate Goal (LTG) Pt will demo improved AROM in shld flexion claudia to 140 deg or better by DC for improved functional mobility. Two Assembler Radio And Electrical Goal (LTG) Pt will demo improved R/L shoulder ER strength to 4/5 claudia at DC for improved stability of glenohumeral joint. One Short Term Goal (STG pt will be ind with HEP within 2 visits in order to ) progress toward emt intermediate therapy goals outside of therapy sessions. Intermediate Goal (LTG) Pt will demo improved QuickDASH score to 30% disability or better by DC for improved quality of life. Assessment Summary Assessment pt presents to the clinic this date with concerns for bilateral shoulder pain. Pt demos decreased RC strength and scapular compensations with overhead mobility. Pt will benefit from skilled Physical Therapy intervention for strength and endurance training in order to improve functional mobility. Physical Therapy Plan Frequency and Duration Frequency of 1x/Week Treatment Duration of 12 treatment (weeks) Plan of Care Start 11/17/24 Date Plan of Care End 02/09/25 Date Therapeutic Interventions Therapeutic Home Exercise Program,Joint Mobilizations,Manual Interventions Therapy,Neuromuscular Re-education,Orthotic/Prosthetic Management,Patient/Caregiver Education,Self-Care/Home Management,Sensory Integration,Soft Tissue Mobilization ,Taping,Therapeutic Activities,Therapeutic Exercises Modalities Cold Pack/Ice Massage,Electric Stimulation,Hot Packs, Infrared Therapy,Iontophoresis,Ultrasound Next Visit Focus/Plan Next Note Type Treatment Note Next Visit Plan Advance scapular strength and mobility training as well as RC strength, postural education, anterior chest opening. PT-Therapy Code Fee Billing Start: 11/17/24 07:27 Freq: Status: Active Protocol: Document 11/17/24 07:28 BL (Rec: 11/17/24 07:44 BL Laptop) Physical Therapy Total Visit Minutes 40 PT Charge Codes - Fee KX Modifier Therapy Cap No Exclusion Modifier PT Evaluation/Re-Evaluation Evaluation/Re-eval PT Eval Moderate Complex Charge Therapeutic Exercise (92809) Minutes 10 PT Unit(s) per 15 1 min
--- NOTE | 2024-11-17 12:42 | PT.OPPOC ---
Physical, Occupational & Speech Therapy At [facility] Current Diagnoses Pain in right shoulder (11/17/24) Pain in left shoulder (11/17/24) Visit Care Team Role Provider Type Mikhail Jung DO Attending Provider Physician Primary Care Provider Referring Provider Specialty: Family Practice Address: [address] [place] [address], [address], [facility] Email: [email or web address] Plan Of Care PT-OP-T Assessment and Plan Start: 11/17/24 07:27 Freq: Status: Active Protocol: Document 11/17/24 07:28 BL (Rec: 11/17/24 07:44 BL Laptop) Physical Therapy Assessment Rehab Potential Rehabilitation Good Potential Evaluation Complexity Number of Personal 1-2 Factors/ Comorbidities Number of Body 3 Systems Impaired Clinical Evolving Presentation at Evaluation Impairments Impairments Activity Tolerance,Coordination,Functional Activities, Functional Mobility,Pain,Posture,ROM,Soft Tissue Mobility,Strength,Transfers Goals Three Alf Goal (LTG) Pt will demo improved AROM in shld flexion claudia to 140 deg or better by DC for improved functional mobility. Two Alf Goal (LTG) Pt will demo improved R/L shoulder ER strength to 4/5 claudia at DC for improved stability of glenohumeral joint. 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 Senior Drupal Developer Goal (LTG) Pt will demo improved QuickDASH score to 30% disability or better by DC for improved quality of life. Assessment Summary Assessment pt presents to the clinic this date with concerns for bilateral shoulder pain. Pt demos decreased RC strength and scapular compensations with overhead mobility. Pt will benefit from skilled Physical Therapy intervention for strength and endurance training in order to improve functional mobility. Physical Therapy Plan Frequency and Duration Frequency of 1x/Week Treatment Duration of 12 treatment (weeks) Plan of Care Start 11/17/24 Date Plan of Care End 02/09/25 Date Therapeutic Interventions Therapeutic Home Exercise Program,Joint Mobilizations,Manual Interventions Therapy,Neuromuscular Re-education,Orthotic/Prosthetic Management,Patient/Caregiver Education,Self-Care/Home Management,Sensory Integration,Soft Tissue Mobilization ,Taping,Therapeutic Activities,Therapeutic Exercises Modalities Cold Pack/Ice Massage,Electric Stimulation,Hot Packs, Infrared Therapy,Iontophoresis,Ultrasound Next Visit Focus/Plan Next Note Type Treatment Note Next Visit Plan Advance scapular strength and mobility training as well as RC strength, postural education, anterior chest opening. Plan of Care Dates Plan of Care Start Date 11/17/24 Plan of Care End Date 02/09/25 Electronically Signed by: Siddharth Fine, PT 11/17/24 [id number] If you are in agreement with this Plan of Care, please return a signed and dated copy. I have reviewed this Plan of Care and certify that the skilled therapy services above are required to meet the patient?s needs. Physician Signature Date Printed Name and Credentials Clinical Instructor Signature Printed Name and Credentials
--- NOTE | 2024-11-25 08:56 | PT.OTN ---
Current Diagnoses Pain in right shoulder (11/25/24) Pain in left shoulder (11/25/24) Physical Therapy Treatment Note PT-OP-A Visit Information Start: 11/17/24 07:27 Freq: Status: Active Protocol: Document 11/25/24 08:15 BL (Rec: 11/25/24 08:56 BL Laptop) Out-Patient Physical Therapy Visit Information Visit Information Visit Type Treatment Note Visit Start Time 08:15 Visit Stop Time 08:53 Visit Number (2) 2/10 (PN by 12/18/24) Number of PRODUCTION ASSEMBLY SUPERVISOR Visits 0 PT-OP-C Subjective Start: 11/17/24 07:27 Freq: Status: Active Protocol: Document 11/25/24 08:15 BL (Rec: 11/25/24 08:56 BL Laptop) OP-PT Subjective Patient Comments Patient Comments Pt presents to the clinic this date and reports she is doing well, states overall she feels slight improvement in her shoulder symptoms. PT-OP-H Neuro Start: 11/17/24 07:27 Freq: Status: Active Protocol: Document 11/17/24 07:28 BL (Rec: 11/17/24 07:44 BL Laptop) Sensation Evaluation Comments Summary Comments pt reports occasional numbness in R UE down to 3rd digit. Pt reports the tingling only last for a few hours and happens maybe a couple times a month Coordination Evaluation Comments Coordination pt denies changes in coordination. Comments PT-OP-J Posture/Palpation/Skin Start: 11/17/24 07:27 Freq: Status: Active Protocol: Document 11/17/24 07:28 BL (Rec: 11/17/24 07:44 BL Laptop) Posture Evaluation Comments Posture Comments pt demos forward head and protracted/rounded shoulders. PT-OP-K Range of Motion Start: 11/17/24 07:27 Freq: Status: Active Protocol: Document 11/17/24 07:28 BL (Rec: 11/17/24 07:44 BL Laptop) Cervical Spine Range of Motion Cervical Spine Active Percentage Testing Position Sitting Flexion 100 Extension 75 Rotation Left 75 Rotation Right 75 Lateral Flexion Left 75 Lateral Flexion 75 Right Shoulder Goniometric Range of Motion Shoulder Right Flexion 90 Abduction 80 External Rotation at 50 0 degrees Abduction Internal Rotation 70 left Shoulder ROM WFL No Flexion 95 Abduction 80 External Rotation at 50 0 degrees Abduction Internal Rotation 70 PT-OP-L Special Tests Start: 11/17/24 07:27 Freq: Status: Active Protocol: Document 11/17/24 07:28 BL (Rec: 11/17/24 07:44 BL Laptop) Special Tests Shoulder Special Tests [place] Test Test Results negative Speed's Biceps Test Results negative Ware Arias Impingement Test Results positive Neer Impingement Test Results negative PT-OP-M Strength Start: 11/17/24 07:27 Freq: Status: Active Protocol: Document 11/17/24 07:28 BL (Rec: 11/17/24 07:44 BL Laptop) Shoulder Strength Shoulder Manual Muscle Testing Right Flexion 4 Good Extension 4+ Good+ Abduction (C5) 4 Good External Rotation 4 Good Internal Rotation 4 Good Left Flexion 4 Good Extension 4 Good Abduction (C5) 4 Good External Rotation 4- Good- Internal Rotation 4 Good PT-OP-Q Treatments Start: 11/17/24 07:27 Freq: Status: Active Protocol: Document 11/25/24 08:15 BL (Rec: 11/25/24 08:56 BL Laptop) Therapeutic Exercises Supine Exercises ROM Supine Exercise Name Wand flexion,abduction Resistance 0# Sidelying Exercises strength Sidelying Exercise sidely ER Name Resistance 1# Sitting Exercises ROM Sitting Exercise pulleys (flex) Name Comments 3 minutes Standing Exercises strength Standing Exercise claudia ER Name Resistance lvl 1 band Comments 2x10 Posture Standing Exercise Scap squeeze, chin tucks, shoulder rolls Name Comments 10x PT-OP-T Assessment and Plan Start: 11/17/24 07:27 Freq: Status: Active Protocol: Document 11/25/24 08:15 BL (Rec: 11/25/24 08:56 BL Laptop) Physical Therapy Assessment Goals Three Group Home Goal (LTG) Pt will demo improved AROM in shld flexion claudia to 140 deg or better by DC for improved functional mobility. Two Group Home Goal (LTG) Pt will demo improved R/L shoulder ER strength to 4/5 claudia at DC for improved stability of glenohumeral joint. One Short Term Goal (STG pt will be ind with HEP within 2 visits in order to ) progress toward fdc therapy goals outside of therapy sessions. Head Of Data Goal (LTG) Pt will demo improved QuickDASH score to 30% disability or better by DC for improved quality of life. Assessment Summary Assessment Pt tolerates session well, advanced HEP for glenohumeral ROM. Pt demos improved ROM following session. Physical Therapy Plan Frequency and Duration Frequency of 1x/Week Treatment Duration of 12 treatment (weeks) Plan of Care Start 11/17/24 Date Plan of Care End 02/09/25 Date Next Visit Focus/Plan Next Note Type Treatment Note Next Visit Plan Advance scapular strength and mobility training as well as RC strength, postural education, anterior chest opening.
--- NOTE | 2024-12-02 09:05 | PT.OTN ---
Current Diagnoses Pain in right shoulder (12/02/24) Pain in left shoulder (12/02/24) Physical Therapy Treatment Note PT OP: Cervical/Upper Extremity Start: 12/02/24 07:23 Freq: Status: Active Protocol: Document 12/02/24 08:13 BL (Rec: 12/02/24 09:03 BL Laptop) Out-Patient Physical Therapy Visit Information Visit Information Visit Type Treatment Note Visit Start Time 08:15 Visit Stop Time 08:53 Visit Number (3) 3/10 Number of COOK HELPER Visits 0 Progress Note Due 12/18/24 OP-PT Subjective Patient Comments Patient Comments Pt presents to the clinic this date and reports she is doing well, states continues to have some discomfort with away from body and overhead activities but reports improved motion with decreased pain. Therapeutic Exercises Supine Exercises strength Supine Exercise Name T, Y, Is Resistance 1# ROM Supine Exercise Name Wand flexion,abduction Resistance 1# Sidelying Exercises strength Sidelying Exercise sidely ER Name Resistance 1# Standing Exercises strength Standing Exercise claduia ER, rows, exte, IR Name Resistance lvl 1 band, lvl 3 band Comments 2x10 Posture Standing Exercise Scap squeeze, chin tucks, shoulder rolls (reviewed) Name Comments 10x Physical Therapy Assessment Goals Three Qual Research Manager Goal (LTG) Pt will demo improved AROM in shld flexion claudia to 140 deg or better by DC for improved functional mobility. Two Qual Research Manager Goal (LTG) Pt will demo improved R/L shoulder ER strength to 4/5 claudia at DC for improved stability of glenohumeral joint. One Short Term Goal (STG pt will be ind with HEP within 2 visits in order to ) progress toward group home therapy goals outside of therapy sessions. [facility]ci Goal (LTG) Pt will demo improved QuickDASH score to 30% disability or better by DC for improved quality of life. Assessment Summary Assessment Pt tolerates session well, advanced HEP for glenohumeral ROM. Pt demos improved ROM following session. Continue to work on strength training within pain free ROM. Physical Therapy Plan Frequency and Duration Frequency of 1x/Week Treatment Duration of 12 treatment (weeks) Plan of Care Start 11/17/24 Date Plan of Care End 02/09/25 Date Next Visit Focus/Plan Next Note Type Treatment Note Next Visit Plan Advance scapular strength and mobility training as well as RC strength, postural education, anterior chest opening.
--- NOTE | 2024-12-09 08:56 | PT.OTN ---
Current Diagnoses Pain in right shoulder (12/09/24) Pain in left shoulder (12/09/24) Physical Therapy Treatment Note PT OP: Cervical/Upper Extremity Start: 12/02/24 07:23 Freq: Status: Active Protocol: Document 12/09/24 08:17 BL (Rec: 12/09/24 08:56 BL Laptop) Out-Patient Physical Therapy Visit Information Visit Information Visit Type Treatment Note Visit Start Time 08:15 Visit Stop Time 08:53 Visit Number (3) 3/10 Number of GRADES 1 THRU 5 TEACHER Visits 0 Progress Note Due 12/18/24 OP-PT Subjective Patient Comments Patient Comments Pt presents to the clinic this date and reports the shoulders have been more sore in the afternoon this week but the mornings have been a bit better. Therapeutic Exercises Supine Exercises strength Supine Exercise Name T, Y, / Is with serratus punch/ Modified bench press Resistance 1# Comments 2x 8 ROM Supine Exercise Name Wand flexion,abduction Resistance 1# Comments 15x Sitting Exercises ROM Sitting Exercise pulleys (flex, abd) Name Comments 3 minutes Standing Exercises strength Standing Exercise claudia ER, IR/ rows, ext Name Resistance lvl 1 band, lvl 3 band Comments 2x8, 2x10 Physical Therapy Assessment Goals Three Hospitality Manager Goal (LTG) Pt will demo improved AROM in shld flexion claudia to 140 deg or better by DC for improved functional mobility. Two Hospitality Manager Goal (LTG) Pt will demo improved R/L shoulder ER strength to 4/5 claudia at DC for improved stability of glenohumeral joint. One Short Term Goal (STG pt will be ind with HEP within 2 visits in order to ) progress toward terminal make up operator therapy goals outside of therapy sessions. Usp Goal (LTG) Pt will demo improved QuickDASH score to 30% disability or better by DC for improved quality of life. Assessment Summary Assessment Pt tolerates session well, advanced HEP for glenohumeral ROM. Pt tolerates increased workload this session with improved AROM noted at end of session. Physical Therapy Plan Frequency and Duration Frequency of 1x/Week Treatment Duration of 12 treatment (weeks) Plan of Care Start 11/17/24 Date Plan of Care End 02/09/25 Date Next Visit Focus/Plan Next Note Type Treatment Note Next Visit Plan Advance scapular strength and mobility training as well as RC strength, postural education, anterior chest opening.
--- NOTE | 2024-12-16 08:58 | PT.OPPN ---
Current Diagnoses Pain in right shoulder (12/16/24) Pain in left shoulder (12/16/24) Physical Therapy Progress Note PT OP: Cervical/Upper Extremity Start: 12/02/24 07:23 Freq: Status: Active Protocol: Document 12/16/24 08:20 BL (Rec: 12/16/24 08:57 BL Laptop) Out-Patient Physical Therapy Visit Information Visit Information Visit Type Progress Note Visit Start Time 08:15 Visit Stop Time 08:53 Visit Number (4) 4/10 Number of SPORTS MANAGER Visits 0 Progress Note Due 01/15/25 OP-PT Subjective Patient Comments Patient Comments Pt presents to the clinic this date and reports she is doing well, states continues to notice improvements in her pain with activity. States she tries to be much more aware of her posture. Therapeutic Exercises Supine Exercises strength Supine Exercise Name Modified bench press Resistance 4# Comments 2x 8 ROM Supine Exercise Name Wand flexion,abduction Resistance 2# Comments 15x Sidelying Exercises strength Sidelying Exercise sidely ER Name Resistance 2# Sitting Exercises strength Sitting Exercise RC band abduction with forward flexion, elbow straight Name Comments 10x ROM Sitting Exercise pulleys (flex, abd) Name Comments 3 minutes Standing Exercises strength Standing Exercise claudia ER, IR/ rows, ext Name Resistance lvl 2 band, lvl 3 band Comments 2x8, 2x10 Posture Standing Exercise Scap squeeze, chin tucks, shoulder rolls (reviewed) Name Comments 10x Physical Therapy Assessment Goals Three Metal Miner Blasting Goal (LTG) Pt will demo improved AROM in shld flexion claudia to 140 deg or better by DC for improved functional mobility. ( progressing) 12/16/24: Pt demos 135 deg this date. Improved pain. Two Metal Miner Blasting Goal (LTG) Pt will demo improved R/L shoulder ER strength to 4/5 claudia at DC for improved stability of glenohumeral joint. (progressing) 12/16/24: pt demos 4/5 strength this date but demos less pain. One Short Term Goal (STG pt will be ind with HEP within 2 visits in order to ) progress toward rattan worker therapy goals outside of therapy sessions. (Goal Met) Snf Goal (LTG) Pt will demo improved QuickDASH score to 30% disability or better by DC for improved quality of life. ( progressing) 12/16/24: pt reports improvement in her ADLS. Assessment Summary Assessment Pt continues to make great progress toward therapy goals. Pt demos improved AROM/PROM this date, demos improved strength and pain control. Pt will continue to benefit from skilled Physical Therapy intervention for strength and endurance training to improved symptoms. Physical Therapy Plan Frequency and Duration Frequency of 1x/Week Treatment Duration of 12 treatment (weeks) Plan of Care Start 11/17/24 Date Plan of Care End 02/09/25 Date Next Visit Focus/Plan Next Note Type Treatment Note Next Visit Plan Advance scapular strength and mobility training as well as RC strength, postural education, anterior chest opening.
--- NOTE | 2024-12-23 09:00 | PT.OTN ---
Current Diagnoses Pain in right shoulder (12/23/24) Pain in left shoulder (12/23/24) Physical Therapy Treatment Note PT OP: Cervical/Upper Extremity Start: 12/02/24 07:23 Freq: Status: Active Protocol: Document 12/23/24 08:13 BL (Rec: 12/23/24 08:59 BL Laptop) Out-Patient Physical Therapy Visit Information Visit Information Visit Type Treatment Note Visit Start Time 08:15 Visit Stop Time 08:55 Visit Number (5) 5/10 Number of QUALITY CONTROL TECHNICIAN Visits 0 Progress Note Due 01/15/25 OP-PT Subjective Patient Comments Patient Comments Pt presents to the clinic this date and reports she is doing well, states continues to notice improvements in her pain with activity. Feels slight improved strength to her shoulders. Therapeutic Exercises Supine Exercises RC strength Supine Exercise Name TBall flex/ext, horiz abd/add strength Supine Exercise Name Modified bench press Resistance 4# Comments 2x 8 ROM Supine Exercise Name Wand flexion,abduction Resistance 3# Comments 15x Sidelying Exercises strength Sidelying Exercise sidely ER Name Resistance 2.2# Sitting Exercises strength Sitting Exercise RC band abduction with forward flexion, elbow straight Name Comments 10x Standing Exercises strength Standing Exercise claudia ER, IR/ rows, ext Name Resistance lvl 2 band, lvl 4 band Comments 2x8, 2x10 Physical Therapy Assessment Goals Three [employer] Goal (LTG) Pt will demo improved AROM in shld flexion claudia to 140 deg or better by DC for improved functional mobility. ( progressing) 12/16/24: Pt demos 135 deg this date. Improved pain. Two [employer] Goal (LTG) Pt will demo improved R/L shoulder ER strength to 4/5 claudia at DC for improved stability of glenohumeral joint. (progressing) 12/16/24: pt demos 4/5 strength this date but demos less pain. One Short Term Goal (STG pt will be ind with HEP within 2 visits in order to ) progress toward assistant terminal manager therapy goals outside of therapy sessions. (Goal Met) [employer] Goal (LTG) Pt will demo improved QuickDASH score to 30% disability or better by DC for improved quality of life. ( progressing) 12/16/24: pt reports improvement in her ADLS. Assessment Summary Assessment Pt tolerates session well with improved AROM following. Able to tolerate increased resistance with HEP this date for RC strengthening. Continue to advance per pt tolerance. Physical Therapy Plan Frequency and Duration Frequency of 1x/Week Treatment Duration of 12 treatment (weeks) Plan of Care Start 11/17/24 Date Plan of Care End 02/09/25 Date Next Visit Focus/Plan Next Note Type Treatment Note Next Visit Plan Advance scapular strength and mobility training as well as RC strength, postural education, anterior chest opening.
--- NOTE | 2024-12-30 08:54 | PT.OTN ---
Current Diagnoses Pain in right shoulder (12/30/24) Pain in left shoulder (12/30/24) Physical Therapy Treatment Note PT OP: Cervical/Upper Extremity Start: 12/02/24 07:23 Freq: Status: Active Protocol: Document 12/30/24 08:21 BL (Rec: 12/30/24 08:54 BL Laptop) Out-Patient Physical Therapy Visit Information Visit Information Visit Type Treatment Note Visit Start Time 08:15 Visit Stop Time 08:55 Visit Number (5) 5/10 Number of AUTO FLEET MAINTENANCE MANAGER Visits 0 Progress Note Due 01/15/25 Precautions Precautions DC next visit. OP-PT Subjective Patient Comments Patient Comments Pt presents to the clinic this date and reports she is doing well, feels her shoulders continues to improve. Feels she will be ready for DC next visit. Therapeutic Exercises Supine Exercises RC strength Supine Exercise Name TBall flex/ext, horiz abd/add, serratus punch Resistance 2# strength Supine Exercise Name Modified bench press Resistance 4# Comments 2x 8 Sitting Exercises strength Sitting Exercise RC band abduction with forward flexion, elbow straight Name Comments 10x ROM Sitting Exercise pulleys (flex, abd, IR) Name Comments 3 minutes Standing Exercises strength Standing Exercise claudia ER, IR/ rows, high band ext Name Resistance lvl 2 band, lvl 4 band Comments 2x8, 2x10 Physical Therapy Assessment Goals Three Usp Goal (LTG) Pt will demo improved AROM in shld flexion claudia to 140 deg or better by DC for improved functional mobility. ( progressing) 12/16/24: Pt demos 135 deg this date. Improved pain. Two Usp Goal (LTG) Pt will demo improved R/L shoulder ER strength to 4/5 claudia at DC for improved stability of glenohumeral joint. (progressing) 12/16/24: pt demos 4/5 strength this date but demos less pain. One Short Term Goal (STG pt will be ind with HEP within 2 visits in order to ) progress toward termite control servicer therapy goals outside of therapy sessions. (Goal Met) Tax Advisor Goal (LTG) Pt will demo improved QuickDASH score to 30% disability or better by DC for improved quality of life. ( progressing) 12/16/24: pt reports improvement in her ADLS. Assessment Summary Assessment Pt tolerates session well with improved AROM following. Able to tolerate increased resistance with HEP this date for RC strengthening. Continue to advance per pt tolerance. Physical Therapy Plan Frequency and Duration Frequency of 1x/Week Treatment Duration of 12 treatment (weeks) Plan of Care Start 11/17/24 Date Plan of Care End 02/09/25 Date Next Visit Focus/Plan Next Note Type Treatment Note Next Visit Plan Advance scapular strength and mobility training as well as RC strength, postural education, anterior chest opening.
--- NOTE | 2025-01-06 08:56 | PT.OPDS ---
Current Diagnoses Pain in right shoulder (01/06/25) Pain in left shoulder (01/06/25) Visit Care Team Role Provider Type Mikhail Jung DO Attending Provider Physician Primary Care Provider Referring Provider Specialty: Family Practice Address: [address] [place] [address], [address], [place], [address] Email: [email or web address] Visit Number Visit Number (6) 10/04 Discharge Summary PT OP: Cervical/Upper Extremity Start: 12/02/24 07:23 Freq: Status: Active Protocol: Document 01/06/25 08:19 BL (Rec: 01/06/25 08:56 BL Laptop) Out-Patient Physical Therapy Visit Information Visit Information Visit Type Discharge Summary Visit Start Time 08:15 Visit Stop Time 08:55 Visit Number (6) 10/04 Number of MOCK UP BUILDER Visits 0 OP-PT Subjective Patient Comments Patient Comments Pt presents to the clinic this date and reports she is doing well, states she feels she can manage her symptoms at home. Feels her HEP is going well and feels she is ready for DC this date. Patient Questionnaires Quick Dash- Upper Extremity Quick Dash UE Score 13% disability Therapeutic Exercises Supine Exercises RC strength Supine Exercise Name TBall flex/ext, horiz abd/add, serratus punch Resistance 2# strength Supine Exercise Name Modified bench press Resistance 4# Comments 2x 8 ROM Supine Exercise Name Wand flexion,abduction Resistance 3# Comments 15x Sidelying Exercises strength Sidelying Exercise sidely ER Name Resistance 2.2# Sitting Exercises strength 2 Sitting Exercise Lat pull down Name Comments 20# 2x8 strength Sitting Exercise RC band abduction with forward flexion, elbow straight Name Comments 10x ROM Sitting Exercise pulleys (flex, abd, IR) Name Comments 3 minutes Standing Exercises strength Standing Exercise claudia ER, IR/ rows, high band ext Name Resistance lvl 2 band, lvl 4 band Comments 2x8, 2x10 Physical Therapy Assessment Goals Three Prison Goal (LTG) Pt will demo improved AROM in shld flexion claudia to 140 deg or better by DC for improved functional mobility. ( progressing) 12/16/24: Pt demos 135 deg this date. Improved pain. 01/06/25: pt demos 150 deg AROM claudia this date. Two Prison Goal (LTG) Pt will demo improved R/L shoulder ER strength to 4/5 claudia at DC for improved stability of glenohumeral joint. (Goal Met) 12/16/24: pt demos 4/5 strength this date but demos less pain. 01/06/25: pt demos 4/5 without pain this date sahil 90 deg of flexion. One Short Term Goal (STG pt will be ind with HEP within 2 visits in order to ) progress toward lift mechanic therapy goals outside of therapy sessions. (Goal Met) Prison Goal (LTG) Pt will demo improved QuickDASH score to 30% disability or better by DC for improved quality of life. ( progressing) 12/16/24: pt reports improvement in her ADLS. 01/06/25: Pt demos 13% disability. Assessment Summary Assessment Pt has made great progress in skilled Physical Therapy intervention and demos improved AROM and pain control. Pt has HEP for home management of symptoms and has met all therapy goals at this time and is adequate for DC this date. Plan to DC this date.
== END 2025-01-09 14:52 | disposition home or self-care (01) ==
LOC: PHYS 08:15
PROVIDERS: PCP Family Medicine; Referring Provider Family Medicine; Visit Provider Family Medicine
DX: M25.511 Pain in right shoulder (principal); M25.512 Pain in left shoulder
CPT/HCPCS: 97110; 97162

== ENCOUNTER → 2025-04-21 09:31 | Outpatient (CLI) | payer OTHER, SELFPAY ==
[2023-10-09 14:55] VITALS: BMI 24.3
[2025-04-21 09:54] LABS: Hemoglobin A1C% w Est Avg Glu 5.1 % (4.0-6.0)
[2025-04-21 12:30] LABS: Alanine Aminotransferase 16 IU/L (<35); Albumin 4.4 g/dL (3.5-5.0); Albumin Globulin Ratio 1.6 (1.0-2.8); Alkaline Phosphatase 67 U/L (38-126); Blood Urea Nitrogen 21 mg/dL (7-17); Calcium 9.8 mg/dL (8.4-10.2); Carbon Dioxide 25 mmol/L (22-32); Chloride 104 mmol/L (98-107); Estimated Glomerular Filt Rate > 60 mL/min (>60); Globulin 2.8 g/dL (1.7-4.1); Glucose 87 mg/dL (70-99); HEMOLYSIS < 15 (0-50); Potassium 4.8 mmol/L (3.4-5.1); Sodium 139 mmol/L (137-145); Total Protein 7.2 g/dL (6.3-8.2)
== END ==
PROVIDERS: PCP Family Medicine; Referring Provider Family Medicine; Visit Provider Family Medicine
DX: Z00.00 Encounter for general adult medical examination without abnormal findings (principal); N18.2 Chronic kidney disease, stage 2 (mild); R73.01 Impaired fasting glucose; Z96.642 Presence of left artificial hip joint
CPT/HCPCS: 36415; 80053; 83036